=== PATIENT | male | born 1960 | race Caucasian/White ===

== ENCOUNTER 2017-09-06 20:38 | Emergency (ER) | payer OTHER ==
--- OUTSIDE RECORDS SUMMARY | 2017-09-06 20:40 | XMS REPORT | Summary of Care ---
:1960 Author Name KYMBERLY PIERRE M.D. Address Unavailable Unavailable , Care Team Providers Name Role Phone JOSH ORTIZ M.D. Unavailable Unavailable KYMBERLY PIERRE M.D. Unavailable Unavailable Unavailable Unavailable Unavailable Functional Status Name Dates Details Functional status health issues are not documented Status: Name Dates Details Cognitive status health issues are not documented Status: Problems Name Dates Details Osteoarthritis of left knee (715.96, M17.12) Status: Active Left knee pain (719.46, M25.562) Status: Active Seborrheic keratoses (702.19, L82.1) Status: Active Medications Name Dates Details OrthoVisc 30 MG/2ML Intra-articular Solution Prefilled Syringe inj 2 ml to l knee qweek x 3 weeks Quantity: 3 Refills: 0 JOSH ORTIZ M.D. Start : 30-Mar-2017 Active 2 ML Syringe Mobic TABS Refills: 0 Active Aspirin TABS Refills: 0 Active Allergies and Adverse Reactions Name Dates Details Penicillins (Allergy) Status: Active Procedures Procedure Dates Details Procedures not documented Immunization Name Dates Details Immunizations not documented Social History Name Dates Details - Status: Name Dates Details Never smoker Vital Signs Date Test Result Details No Known Vitals to report Results Date Description Value Details [id number] Tobacco Use Screening Completed DONE Plan of Care Name Dates Details Planned Observations Planned Goals not documented Interventions Provided Plan1. Seborrheic Keratoses, bilateral upper extremities- benign appearing, continue to monitor- discussed nature and etiology as well as possibility of acquiring more lesions over timeRTC PRN. Instructions Name Dates Details Instructions not documented Encounters Appointment; JOSH ORTIZ M.D. On: 30-Mar-2017 14:15 Encounter Diagnosis: Problem not documented Appointment; JOSH ORTIZ M.D. On: 15-Apr-2017 10:15 Encounter Diagnosis: Problem not documented Appointment; JOSH ORTIZ M.D. On: 22-Apr-2017 10:15 Encounter Diagnosis: Problem not documented Appointment; JOSH ORTIZ M.D. On: 29-Apr-2017 10:15 Encounter Diagnosis: Problem not documented Appointment; KYMBERLY PIERRE M.D. On: 13-Aug-2017 13:45 Encounter Diagnosis: Problem not documented
[2017-09-06 22:23] LABS: Urine Blood NEGATIVE (NEG); Urine Glucose NEGATIVE (NEG); Urine Protein NEGATIVE (NEG); Urine Specific Gravity 1.025 (1.005-1.030); Urine pH 6.5 (5.0-7.0)
[2017-09-06 22:25] LABS: Urine Bacteria NONE SEEN /HPF (NONE SEEN); Urine Culture Reflex Order NOT NEEDED; Urine RBC <5 /HPF (NONE SEEN)
[2017-09-06 22:30] LABS: Absolute Lymphocytes (CBC) 2.1 K/uL (0.7-4.9); Absolute Monocytes 0.9 K/uL (0.1-1.3); Absolute Neutrophil 5.1 K/uL (1.8-8.0); Basophils % 0.3 % (0-1.3); Eosinophils % 0.8 % (0-4.4); Lymphocytes % 25.5 % (15.3-44.8); MCH 28.9 pg (27.0-35.0); MCV 86.3 fL (80-100); MPV 9.8 fL (7.6-11.3); Monocytes % 10.6 % (3.3-12.3); RBC Red Blood Cell Count 5.56 M/uL (4.33-5.43)
[2017-09-06 22:40] LABS: ALT/SGPT 42 U/L (12-78); AST/SGOT 21 U/L (15-37); Albumin 3.9 g/dL (3.4-5.0); Alkaline Phosphatase 105 U/L (45-117); Amylase Level 47 U/L (25-115); BUN Blood Urea Nitrogen 20 mg/dL (7-18); Bicarbonate 30 mmol/L (21-32); Bilirubin Direct < 0.1 mg/dL (0-0.2); Bilirubin Total 0.4 mg/dL (0.2-1.0); Glucose Level 98 mg/dL (74-106); Lipase 135 U/L (73-393); Potassium 4.1 mmol/L (3.5-5.1); Protein, Total 7.2 g/dL (6.4-8.2); Sodium Level 141 mmol/L (136-145)
[2017-09-06] MEDS ORDERED: PANTOPRAZOLE 40 MG INJ ONE (23:07)
[2017-09-06] MEDS ORDERED: ONDANSETRON 4 MG/2 ML VIAL ONE (23:07)
--- NOTE | 2017-09-06 23:16 | ER ---
Nurse's Notes [facility] Name: Rei Euceda Jr Age: 57 yrs Sex: Male : 1960 Arrival Date: 09/06/2017 Time: 20:42 Bed 24 Private MD: Eligio Baca T Diagnosis: Nausea Presentation: 09/06 20:53 Presenting complaint: Patient states: he has been feeling nauseous x 1 week has had bb ulcers in the past and is concerned because he is going out of town next week. Transition of care: patient was not received from another setting of care. Onset of symptoms was August 30, 2017. Risk Assessment: Do you want to hurt yourself or someone else? Patient reports no desire to harm self or others. Initial Sepsis Screen: Does the patient meet any 2 criteria? No. Patient's initial sepsis screen is negative. Does the patient have a suspected source of infection? No. Patient's initial sepsis screen is negative. Care prior to arrival: None. 20:53 Method Of Arrival: Ambulatory 20:53 Acuity: DAVID 3 bb Historical: - Allergies: 20:55 PENICILLINS; bb - Home Meds: 20:55 aspirin 81 mg Oral TbEC 1 tab once daily [Active]; Flonase 50 mcg/actuation Nasal spsn bb 1 spray 2 times per day [Active]; aspirin 81 mg Oral chew 1 tab once daily [Active]; celecoxib 200 mg Oral cap 1 cap once daily [Active]; omeprazole 40 mg Oral cpDR 1 cap once daily [Active]; - PMHx: 20:55 allergies; Arthritis; bb 21:00 colitis; Ulcers; bb - PSHx: 20:55 shoulder surg; Knee surgery; bb 21:00 colonoscoppy; bb - Immunization history:: Adult Immunizations unknown. - Social history:: Smoking status: Patient/guardian denies using tobacco. - Ebola Screening: : No symptoms or risks identified at this time. Screenin:09 Abuse screen: Denies threats or abuse. Nutritional screening: No deficits noted. jd3 Tuberculosis screening: No symptoms or risk factors identified. Fall Risk Ambulatory Aid- None/Bed Rest/Nurse Assist (0 pts). Gait- Normal/Bed Rest/Wheelchair (0 pts) Mental Status- Oriented to own ability (0 pts). Total Estevez Fall Scale indicates No Risk (0-24 pts). Assessment: 21:06 General: Appears in no apparent distress. uncomfortable, Behavior is calm, cooperative, jd3 appropriate for age. Pain: Complains of pain in right upper quadrant and left upper quadrant Pain does not radiate. Quality of pain is described as aching, crampy, Pain began 2-3 days ago. Is continuous, Aggravated by eating, drinking, Also complains of nausea. Neuro: Level of Consciousness is awake, alert, obeys commands, Oriented to person, place, time, situation. Cardiovascular: Heart tones S1 S2 present Capillary refill < 3 seconds Patient's skin is warm and dry. Respiratory: Airway is patent Respiratory effort is even, unlabored, Respiratory pattern is regular, symmetrical, Breath sounds are clear bilaterally. GI: Abdomen is round Bowel sounds present X 4 quads. hyperactive in right upper quadrant, left upper quadrant, right lower quadrant and left lower quadrant Abd is soft and non tender X 4 quads. Reports constipation, nausea, Patient currently denies diarrhea, vomiting. : No signs and/or symptoms were reported regarding the genitourinary system. EENT: No signs and/or symptoms were reported regarding the EENT system. Derm: Skin is intact, Skin is dry, Skin is normal, Skin temperature is warm. Musculoskeletal: Circulation, motion, and sensation intact. Range of motion: intact in all extremities. 22:20 Reassessment: Patient appears in no apparent distress at this time. Patient and/or jd3 family updated on plan of care and expected duration. Pain level reassessed. Patient is alert, oriented x 3, equal unlabored respirations, skin warm/dry/pink. 23:20 Reassessment: Patient appears in no apparent distress at this time. Patient and/or jd3 family updated on plan of care and expected duration. Pain level reassessed. Patient is alert, oriented x 3, equal unlabored respirations, skin warm/dry/pink. pt reported understanding of discharge instructions, even and steady gait upon discharge. Patient denies pain at this time. Vital Signs: 20:55 BP 140 / 88; Pulse 78; Resp 18 S; Temp 98(O); Pulse Ox 97% on R/A; Weight 94.35 kg (R); bb Height 5 ft. 8 in. (172.72 cm) (R); Pain 0/10; 22:18 BP 121 / 84; Pulse 81; Resp 16 S; Pulse Ox 96% on R/A; Pain 0/10; bb 23:21 BP 133 / 97; Pulse 80; Resp 17 S; Pulse Ox 97% on R/A; Pain 0/10; jd3 20:55 Body Mass Index 31.63 (94.35 kg, 172.72 cm) bb ED Course: 20:42 Patient arrived in ED. ds1 20:42 Eligio Baca MD is Private Physician. ds1 20:54 Triage completed. bb 20:55 Arm band placed on right wrist. Patient placed in an exam room, on a stretcher. bb 21:06 Valeriy Stone, RN is Primary Nurse. jd3 21:06 Arsalan Bennett MD is Attending Physician. tw4 21:09 Patient has correct armband on for positive identification. Bed in low position. Call jd3 light in reach. Side rails up X 1. Adult w/ patient. 22:08 Inserted saline lock: 20 gauge in right antecubital area, using aseptic technique. jd3 Blood collected. 23:15 IV discontinued, intact, bleeding controlled, No redness/swelling at site. Pressure jd3 dressing applied. 23:22 No provider procedures requiring assistance completed. jd3 Administered Medications: 23:12 Drug: ProTONIX 40 mg Route: IVP; Site: right antecubital; jd3 23:23 Follow up: Response: No adverse reaction jd3 23:12 Drug: Zofran 4 mg Route: IVP; Site: right antecubital; jd3 23:23 Follow up: Response: No adverse reaction jd3 Outcome: 23:15 Discharge ordered by . tw4 23:22 Discharged to home ambulatory, with family. jd3 23:22 Condition: stable 23:22 Discharge instructions given to patient, family, Instructed on discharge instructions, follow up and referral plans. medication usage, Demonstrated understanding of instructions, follow-up care, medications, Prescriptions given X 1. 23:23 Patient left the ED. jd3 Signatures: Yolande Flores ds1 Kim Sen RN RN bb Valeriy Stone, Arsalan Bazzi RN, MD MD tw4 Corrections: (The following items were deleted from the chart) 20:58 20:53 Presenting complaint: Patient states: he has been feeling nauseous x 1 week bb bb 22:19 22:19 Reassessment: Patient appears in no apparent distress at this time. Patient bb and/or family updated on plan of care and expected duration. Pain level reassessed. Patient is alert, oriented x 3, equal unlabored respirations, skin warm/dry/pink. faheem 22:08 Inserted saline lock: 20 gauge in right antecubital area, using aseptic bb technique. Blood collected. faheem
--- NOTE | 2017-09-06 23:16 | EDPHYS ---
Physician Documentation [facility] Name: Rei Euceda Jr Age: 57 yrs Sex: Male : 1960 Arrival Date: 09/06/2017 Time: 20:42 Bed 24 Private MD: Eligio Baca T ED Physician Arsalan Bennett HPI: 09/06 23:08 This 57 yrs old Male presents to ER via Ambulatory with complaints of Nausea, tw4 Abdominal Pain. 23:08 The patient presents to the emergency department with nausea, vomiting. Onset: The tw4 symptoms/episode began/occurred today. Possible causes: unknown. The symptoms are aggravated by food . Associated signs and symptoms: The patient has no apparent associated signs or symptoms. Severity of symptoms: At their worst the symptoms were moderate in the emergency department the symptoms have resolved. The patient has not experienced similar symptoms in the past. Historical: - Allergies: 20:55 PENICILLINS; bb - Home Meds: 20:55 aspirin 81 mg Oral TbEC 1 tab once daily [Active]; Flonase 50 mcg/actuation Nasal spsn bb 1 spray 2 times per day [Active]; aspirin 81 mg Oral chew 1 tab once daily [Active]; celecoxib 200 mg Oral cap 1 cap once daily [Active]; omeprazole 40 mg Oral cpDR 1 cap once daily [Active]; - PMHx: 20:55 allergies; Arthritis; bb 21:00 colitis; Ulcers; bb - PSHx: 20:55 shoulder surg; Knee surgery; bb 21:00 colonoscoppy; bb - Immunization history:: Adult Immunizations unknown. - Social history:: Smoking status: Patient/guardian denies using tobacco. - Ebola Screening: : No symptoms or risks identified at this time. ROS: 23:08 Constitutional: Negative for fever, chills, and weight loss, Cardiovascular: Negative tw4 for chest pain, palpitations, and edema, Respiratory: Negative for shortness of breath, cough, wheezing, and pleuritic chest pain. 23:08 Back: Negative for injury and pain, MS/Extremity: Negative for injury and deformity, Skin: Negative for injury, rash, and discoloration, Neuro: Negative for headache, weakness, numbness, tingling, and seizure. 23:08 Abdomen/GI: Positive for nausea, Negative for abdominal pain, nausea and vomiting, nausea, vomiting, and diarrhea, vomiting, diarrhea, abdominal cramps, abdominal distension, anorexia, dysphagia, black/tarry stool, rectal pain, rectal bleeding, bowel incontinence. Exam: 23:08 Constitutional: This is a well developed, well nourished patient who is awake, alert, tw4 and in no acute distress. Head/Face: Normocephalic, atraumatic. Chest/axilla: Normal chest wall appearance and motion. Nontender with no deformity. No lesions are appreciated. Cardiovascular: Regular rate and rhythm with a normal S1 and S2. No gallops, murmurs, or rubs. Normal PMI, no JVD. No pulse deficits. Respiratory: Lungs have equal breath sounds bilaterally, clear to auscultation and percussion. No rales, rhonchi or wheezes noted. No increased work of breathing, no retractions or nasal flaring. Abdomen/GI: Soft, non-tender, with normal bowel sounds. No distension or tympany. No guarding or rebound. No evidence of tenderness throughout. Back: No spinal tenderness. No costovertebral tenderness. Full range of motion. MS/ Extremity: Pulses equal, no cyanosis. Neurovascular intact. Full, normal range of motion. Neuro: Awake and alert, GCS 15, oriented to person, place, time, and situation. Cranial nerves II-XII grossly intact. Motor strength 5/5 in all extremities. Sensory grossly intact. Cerebellar exam normal. Normal gait. Vital Signs: 20:55 BP 140 / 88; Pulse 78; Resp 18 S; Temp 98(O); Pulse Ox 97% on R/A; Weight 94.35 kg (R); bb Height 5 ft. 8 in. (172.72 cm) (R); Pain 0/10; 22:18 BP 121 / 84; Pulse 81; Resp 16 S; Pulse Ox 96% on R/A; Pain 0/10; bb 23:21 BP 133 / 97; Pulse 80; Resp 17 S; Pulse Ox 97% on R/A; Pain 0/10; jd3 20:55 Body Mass Index 31.63 (94.35 kg, 172.72 cm) bb MDM: 21:06 Patient medically screened. tw4 23:08 Differential diagnosis: Nonspecific abd pain, cholecystitis, pancreatitis, tw4 appendicitis, diverticulitis. Data reviewed: vital signs, nurses notes. Counseling: I had a detailed discussion with the patient and/or guardian regarding: the historical points, exam findings, and any diagnostic results supporting the discharge/admit diagnosis, lab results. Medication response: Zofran relieved the patient's nausea. Response to treatment: the patient's symptoms have resolved after treatment, and as a result, I will discharge patient. Special discussion: I discussed with the patient/guardian in detail that at this point there is no indication for admission to the hospital. It is understood, however, that if the symptoms persist or worsen the patient needs to return immediately for re-evaluation. ED course: pt has no abdominal pain upon initial exam. Instructed to followup and return if symptoms worsen. 09/06 21:41 Order name: Amylase, Serum; Complete Time: 22:42 [facility] 09/06 22:42 Interpretation: Within normal limits: ARIE 47. [facility] 09/06 21:41 Order name: Basic Metabolic Panel; Complete Time: 22:42 [facility] 09/06 22:42 Interpretation: Normal except: BUN 20; GFR 69; CA 8.4. [facility] 09/06 21:41 Order name: CBC with Diff; Complete Time: 22:42 [facility] 09/06 22:42 Interpretation: Normal except: RBC 5.56. [facility] 09/06 21:41 Order name: Creatinine for Radiology; Complete Time: 22:42 [facility] 09/06 22:42 Interpretation: Within normal limits: CRE 1.10; GFR > 60. [facility] 09/06 21:41 Order name: Hepatic Function; Complete Time: 22:42 [facility] 09/06 22:43 Interpretation: Within normal limits. [facility] 09/06 21:41 Order name: Lipase; Complete Time: 22:42 [facility] 09/06 21:41 Order name: Urine Microscopic Only; Complete Time: 22:42 [facility] 09/06 22:43 Interpretation: Within normal limits. [facility] 09/06 21:41 Order name: IV Saline Lock; Complete Time: 22:17 [facility] 09/06 21:41 Order name: Labs collected and sent; Complete Time: 22:17 [facility] 09/06 21:41 Order name: Urine Dipstick-Ancillary (obtain specimen); Complete Time: 22:17 [facility] 09/06 22:17 Order name: Urine Dipstick--Ancillary (enter results); Complete Time: 22:42 [facility] 09/06 22:43 Interpretation: Within normal limits. tw4 Administered Medications: 23:12 Drug: ProTONIX 40 mg Route: IVP; Site: right antecubital; jd3 23:23 Follow up: Response: No adverse reaction jd3 23:12 Drug: Zofran 4 mg Route: IVP; Site: right antecubital; jd3 23:23 Follow up: Response: No adverse reaction jd3 Disposition: 09/06/17 23:15 Discharged to Home. Impression: Nausea. - Condition is Stable. - Discharge Instructions: Nausea, Adult. - Prescriptions for Zofran 4 mg Oral Tablet - take 1 tablet by ORAL route every 12 hours As needed; 20 tablet. - Medication Reconciliation Form, Thank You Letter, Antibiotic Education, Prescription Opioid Use form. - Follow up: Private Physician; When: As needed; Reason: Recheck today's complaints, Re-evaluation by your physician. Signatures: Dispatcher [employer] Kim Wilkinson RN RN bb Davies, Jonathon, RN RN jd3 Wadley, Terrence, MD MD tw4 Corrections: (The following items were deleted from the chart) 23:23 23:15 09/06/2017 23:15 Discharged to Home. Impression: Nausea. Condition is Stable. jd3 Forms are Medication Reconciliation Form, Thank You Letter, Antibiotic Education, Prescription Opioid Use. Follow up: Private Physician; When: As needed; Reason: Recheck today's complaints, Re-evaluation by your physician. tw4
[2017-09-06 23:29] VITALS: TEMP 98
[2017-09-06 23:32] VITALS: BP 133/97; O2SAT 97
== END 2017-09-06 23:23 | disposition home or self-care (01) ==
LOC: ER 20:38
DX: R11.0 Nausea (principal); Z88.0 Allergy status to penicillin; Z79.82 Long term (current) use of aspirin
CPT/HCPCS: 36415; 80048; 80076; 81003; 81015; 82150; 83690; 85025; 96374; 96375; 99284; C9113; J2405

== ENCOUNTER 2017-11-04 20:11 | Emergency (ER) | payer OTHER ==
[2017-11-04 22:56] LABS: Absolute Lymphocytes (CBC) 1.5 K/uL (0.7-4.9); Absolute Monocytes 0.6 K/uL (0.1-1.3); Absolute Neutrophil 5.7 K/uL (1.8-8.0); Basophils % 0.3 % (0-1.3); Eosinophils % 0.8 % (0-4.4); Lymphocytes % 19.1 % (15.3-44.8); MCH 29.9 pg (27.0-35.0); MCV 85.3 fL (80-100); MPV 9.4 fL (7.6-11.3); Monocytes % 7.5 % (3.3-12.3); RBC Red Blood Cell Count 5.16 M/uL (4.33-5.43)
[2017-11-04] MEDS ORDERED: NA CHLORIDE 0.9% 1,000 ML ONE (23:09)
[2017-11-04 23:14] LABS: Albumin 3.4 g/dL (3.4-5.0); Bilirubin Direct 0.1 mg/dL (0-0.2); Bilirubin Total 0.4 mg/dL (0.2-1.0); Potassium 3.9 mmol/L (3.5-5.1)
[2017-11-05 00:02] LABS: Urine Blood NEGATIVE (NEG); Urine Glucose NEGATIVE (NEG); Urine Protein NEGATIVE (NEG); Urine Specific Gravity 1.015 (1.005-1.030); Urine pH 7.5 (5.0-7.0)
[2017-11-05 00:21] LABS: Urine Bacteria <20 /HPF (NONE SEEN); Urine Culture Reflex Order NOT NEEDED; Urine RBC NONE SEEN /HPF (NONE SEEN)
[2017-11-05 00:22] LABS: Urine Amorphous Sediment 1+ /HPF (NONE SEEN)
--- NOTE | 2017-11-05 00:29 | ER ---
Nurse's Notes [facility] Name: Rei Euceda Jr Age: 57 yrs Sex: Male : 1960 Arrival Date: 11/04/2017 Time: 20:15 Bed 15 Private MD: Eligio Baca T Diagnosis: Myalgias Presentation: 11/04 20:35 Presenting complaint: Patient states: Last he started feeling sore all over, aj1 and he has been dealing with it on and off since then. Denies fever. Reports constipation, denies abdominal pain and vomiting. Reports some nausea. Denies CP, Denies SOB. Transition of care: patient was not received from another setting of care. Onset of symptoms was October 28, 2017. Risk Assessment: Do you want to hurt yourself or someone else? Patient reports no desire to harm self or others. Initial Sepsis Screen: Does the patient meet any 2 criteria? No. Patient's initial sepsis screen is negative. Does the patient have a suspected source of infection? No. Patient's initial sepsis screen is negative. Care prior to arrival: None. 20:35 Method Of Arrival: Ambulatory [facility] 20:35 Acuity: DAVID 4 aj1 Triage Assessment: 20:38 General: Appears in no apparent distress. comfortable, Behavior is calm, cooperative, aj1 appropriate for age. Pain: Complains of pain in generalized soreness Pain currently is 7 out of 10 on a pain scale. Neuro: Level of Consciousness is awake, alert, obeys commands, Oriented to person, place, time, situation, Speech is normal, Facial symmetry appears normal, Denies weakness blurred vision dizziness. Cardiovascular: Denies chest pain, palpitations, shortness of breath. Respiratory: Airway is patent Respiratory effort is even, unlabored, Respiratory pattern is regular, symmetrical, Denies cough, shortness of breath. GI: Reports constipation, Patient currently denies diarrhea, vomiting. Historical: - Allergies: 20:38 PENICILLINS; aj1 - Home Meds: 20:38 losartan oral oral [Active]; aj1 - PMHx: 20:38 allergies; Arthritis; Colitis; Ulcers; Hypertension; aj1 - Immunization history:: Flu vaccine is not up to date. - Social history:: Smoking status: Patient/guardian denies using tobacco. - Ebola Screening: : Patient denies travel to an Ebola-affected area in the 21 days before illness onset. - Family history:: not pertinent, pertinent for. - Hospitalizations: : No recent hospitalization is reported. Screenin:35 Abuse screen: Denies threats or abuse. Nutritional screening: No deficits noted. jd3 Tuberculosis screening: No symptoms or risk factors identified. Fall Risk Ambulatory Aid- None/Bed Rest/Nurse Assist (0 pts). Gait- Normal/Bed Rest/Wheelchair (0 pts) Mental Status- Oriented to own ability (0 pts). Total Estevez Fall Scale indicates No Risk (0-24 pts). Assessment: 21:33 General: Appears in no apparent distress. uncomfortable, Behavior is calm, cooperative, jd3 appropriate for age, Reports generalized soreness. Pain: Complains of pain in right foot, left foot, right arm and neck Quality of pain is described as aching. Neuro: Level of Consciousness is awake, alert, obeys commands, Oriented to person, place, time, situation. Cardiovascular: Heart tones S1 S2 present Capillary refill < 3 seconds Patient's skin is warm and dry. Respiratory: Airway is patent Respiratory effort is even, unlabored, Respiratory pattern is regular, symmetrical, Breath sounds are clear bilaterally. GI: Abdomen is round Bowel sounds present X 4 quads. Abd is soft and non tender X 4 quads. Reports constipation, nausea. : No signs and/or symptoms were reported regarding the genitourinary system. EENT: No signs and/or symptoms were reported regarding the EENT system. Derm: Skin is intact, Skin is dry, Skin is normal, Skin temperature is warm. Musculoskeletal: Circulation, motion, and sensation intact. Range of motion: intact in all extremities. 22:30 Reassessment: Patient appears in no apparent distress at this time. Patient and/or jd3 family updated on plan of care and expected duration. Pain level reassessed. Patient is alert, oriented x 3, equal unlabored respirations, skin warm/dry/pink. 23:30 Reassessment: Patient appears in no apparent distress at this time. Patient and/or jd3 family updated on plan of care and expected duration. Pain level reassessed. Patient is alert, oriented x 3, equal unlabored respirations, skin warm/dry/pink. 11/05 00:18 Reassessment: Patient appears in no apparent distress at this time. Patient and/or jd3 family updated on plan of care and expected duration. Pain level reassessed. Patient is alert, oriented x 3, equal unlabored respirations, skin warm/dry/pink. 00:37 Reassessment: Patient appears in no apparent distress at this time. Patient and/or jd3 family updated on plan of care and expected duration. Pain level reassessed. Patient is alert, oriented x 3, equal unlabored respirations, skin warm/dry/pink. Patient states feeling better. Vital Signs: 11/04 20:38 BP 137 / 94; Pulse 88; Resp 18; Temp 98.2; Pulse Ox 96% on R/A; Weight 95.25 kg (R); aj1 Height 5 ft. 8 in. (172.72 cm) (R); Pain 7/10; 11/05 00:17 BP 127 / 83; Pulse 83; Resp 16 S; Pulse Ox 97% on R/A; jd3 00:37 BP 126 / 81; Pulse 84; Resp 16 S; Pulse Ox 98% on R/A; jd3 11/04 20:38 Body Mass Index 31.93 (95.25 kg, 172.72 cm) aj1 ED Course: 11/04 20:15 Patient arrived in ED. es 20:15 Eligio Baca MD is Private Physician. es 20:37 Triage completed. aj1 20:38 Arm band placed on Patient placed in waiting room, Patient notified of wait time. aj1 21:29 Valeriy Stone, BELINDA is Primary Nurse. jd3 21:36 Patient has correct armband on for positive identification. Bed in low position. Call j light in reach. Side rails up X 1. 21:46 Daryl Hall MD is Attending Physician. wa 22:50 Inserted saline lock: 20 gauge in right antecubital area, using aseptic technique. mt Blood collected. 11/05 00:30 No provider procedures requiring assistance completed. IV discontinued, intact, jd3 bleeding controlled, No redness/swelling at site. Pressure dressing applied. Administered Medications: 11/04 23:15 Drug: NS 0.9% 1000 ml Route: IV; Rate: 1000 ml; Site: right antecubital; jd3 11/05 00:51 Follow up: Response: No adverse reaction; IV Status: Completed infusion; IV Intake: jd3 1000ml 00:45 Drug: Decadron - Dexamethasone 10 mg Route: IVP; Site: right antecubital; jd3 00:51 Follow up: Response: Medication administered at discharge. jd3 Intake: 00:51 IV: 1000ml; Total: 1000ml. jd3 Outcome: 00:29 Discharge ordered by . tabitha 00:30 Discharged to home ambulatory. jd3 00:30 Condition: stable 00:30 Discharge instructions given to patient, Instructed on discharge instructions, follow up and referral plans. Demonstrated understanding of instructions, follow-up care. 00:55 Patient left the ED. jd3 Signatures: Sparkle Uriarte, RN RN aj1 Sharda Akins Moriah mt Appiah, William, MD MD wa Davies, Jonathon, RN RN jd3
--- NOTE | 2017-11-05 00:29 | EDPHYS ---
Physician Documentation [facility] Name: Rei Euceda Jr Age: 57 yrs Sex: Male : 1960 Arrival Date: 11/04/2017 Time: 20:15 Bed 15 Private MD: Elgiio Baca T ED Physician Daryl Hall HPI: 11/05 00:25 This 57 yrs old Male presents to ER via Ambulatory with complaints of BODY IS wa SORE. 00:25 c/o "my whole body is sore." Denies BOWER, dizziness, SOB, CP, abd pain or weakness. wa denies cough. Onset: The symptoms/episode began/occurred 3 day(s) ago. Severity of symptoms: At their worst the symptoms were moderate in the emergency department the symptoms are unchanged. The patient has not experienced similar symptoms in the past. The patient has not recently seen a physician. Historical: - Allergies: 11/04 20:38 PENICILLINS; aj1 - Home Meds: 20:38 losartan oral oral [Active]; aj1 - PMHx: 20:38 allergies; Arthritis; Colitis; Ulcers; Hypertension; aj1 - Immunization history:: Flu vaccine is not up to date. - Social history:: Smoking status: Patient/guardian denies using tobacco. - Ebola Screening: : Patient denies travel to an Ebola-affected area in the 21 days before illness onset. - Family history:: not pertinent, pertinent for. - Hospitalizations: : No recent hospitalization is reported. ROS: 11/05 00:27 Constitutional: Negative for fever, chills, and weight loss, Eyes: Negative for injury, wa pain, redness, and discharge, ENT: Negative for injury, pain, and discharge, Neck: Negative for injury, pain, and swelling, Cardiovascular: Negative for chest pain, palpitations, and edema, Respiratory: Negative for shortness of breath, cough, wheezing, and pleuritic chest pain, Abdomen/GI: Negative for abdominal pain, nausea, vomiting, diarrhea, and constipation. Constitutional: Negative for fever, chills, and weight loss, Back: Negative for injury and pain, : Negative for injury, bleeding, discharge, and swelling, MS/Extremity: Negative for injury and deformity, Skin: Negative for injury, rash, and discoloration, Neuro: Negative for headache, weakness, numbness, tingling, and seizure, Psych: Negative for depression, anxiety, suicide ideation, homicidal ideation, and hallucinations. All other systems are negative. Exam: 00:27 Constitutional: This is a well developed, well nourished patient who is awake, alert, wa and in no acute distress. Head/Face: Normocephalic, atraumatic. Eyes: Pupils equal round and reactive to light, extra-ocular motions intact. Lids and lashes normal. Conjunctiva and sclera are non-icteric and not injected. Cornea within normal limits. Periorbital areas with no swelling, redness, or edema. ENT: Nares patent. No nasal discharge, no septal abnormalities noted. Tympanic membranes are normal and external auditory canals are clear. Oropharynx with no redness, swelling, or masses, exudates, or evidence of obstruction, uvula midline. Mucous membranes moist. Neck: Trachea midline, no thyromegaly or masses palpated, and no cervical lymphadenopathy. Supple, full range of motion without nuchal rigidity, or vertebral point tenderness. No Meningismus. Chest/axilla: Normal chest wall appearance and motion. Nontender with no deformity. No lesions are appreciated. Cardiovascular: Regular rate and rhythm with a normal S1 and S2. No gallops, murmurs, or rubs. Normal PMI, no JVD. No pulse deficits. Respiratory: Lungs have equal breath sounds bilaterally, clear to auscultation and percussion. No rales, rhonchi or wheezes noted. No increased work of breathing, no retractions or nasal flaring. Abdomen/GI: Soft, non-tender, with normal bowel sounds. No distension or tympany. No guarding or rebound. No evidence of tenderness throughout. Back: No spinal tenderness. No costovertebral tenderness. Full range of motion. Skin: Warm, dry with normal turgor. Normal color with no rashes, no lesions, and no evidence of cellulitis. MS/ Extremity: Pulses equal, no cyanosis. Neurovascular intact. Full, normal range of motion. Neuro: Awake and alert, GCS 15, oriented to person, place, time, and situation. Cranial nerves II-XII grossly intact. Motor strength 5/5 in all extremities. Sensory grossly intact. Cerebellar exam normal. Normal gait. Psych: Awake, alert, with orientation to person, place and time. Behavior, mood, and affect are within normal limits. Vital Signs: 11/04 20:38 BP 137 / 94; Pulse 88; Resp 18; Temp 98.2; Pulse Ox 96% on R/A; Weight 95.25 kg (R); aj1 Height 5 ft. 8 in. (172.72 cm) (R); Pain 7/10; 11/05 00:17 BP 127 / 83; Pulse 83; Resp 16 S; Pulse Ox 97% on R/A; jd3 00:37 BP 126 / 81; Pulse 84; Resp 16 S; Pulse Ox 98% on R/A; jd3 11/04 20:38 Body Mass Index 31.93 (95.25 kg, 172.72 cm) aj1 MDM: 11/04 21:46 Patient medically screened. wi 11/05 00:27 Differential Diagnosis nml exam and vitals. c/o body soreness. only takes losartan for wi BP. Data reviewed: vital signs, nurses notes. Test interpretation: by ED physician or midlevel provider: labs wnl.. Response to treatment: the patient's symptoms have markedly improved after treatment. 11/04 22:24 Order name: Basic Metabolic Panel; Complete Time: 00:24 wi 11/04 22:24 Order name: CBC with Diff; Complete Time: 00:24 wi 11/04 22:24 Order name: Hepatic Function; Complete Time: 00:24 wi 11/04 22:24 Order name: Lipase; Complete Time: 00:24 wi 11/04 22:24 Order name: Urine Microscopic Only; Complete Time: 00:24 wi 11/04 23:29 Order name: Urine Dipstick--Ancillary (enter results); Complete Time: 00:24 [facility] 11/04 22:24 Order name: IV Saline Lock; Complete Time: 23:03 wi 11/04 22:24 Order name: Labs collected and sent; Complete Time: 23:03 wi 11/04 22:24 Order name: Urine Dipstick-Ancillary (obtain specimen); Complete Time: 00:02 wi Administered Medications: 11/04 23:15 Drug: NS 0.9% 1000 ml Route: IV; Rate: 1000 ml; Site: right antecubital; jd3 11/05 00:51 Follow up: Response: No adverse reaction; IV Status: Completed infusion; IV Intake: jd3 1000ml 00:45 Drug: Decadron - Dexamethasone 10 mg Route: IVP; Site: right antecubital; jd3 00:51 Follow up: Response: Medication administered at discharge. jd3 Disposition: 11/05/17 00:29 Discharged to Home. Impression: Myalgias. - Condition is Stable. - Medication Reconciliation Form, Thank You Letter, Antibiotic Education, Prescription Opioid Use form. - Follow up: Private Physician; When: 1 - 2 days; Reason: Re-evaluation by your physician. - Problem is new. - Symptoms have improved. - Notes: your tests are normal. follow up with your doctor but return here immediately for worsening concerns Signatures: Dispatcher [employer] EDSparkle Rodriguez RN RN aj1 Daryl Hall MD MD wa Davies, Jonathon, RN RN jd3 Corrections: (The following items were deleted from the chart) 00:55 00:29 11/05/2017 00:29 Discharged to Home. Impression: Myalgias. Condition is Stable. jd3 Forms are Medication Reconciliation Form, Thank You Letter, Antibiotic Education, Prescription Opioid Use. Follow up: Private Physician; When: 1 - 2 days; Reason: Re-evaluation by your physician. Problem is new. Symptoms have improved. tabitha
[2017-11-05] MEDS ORDERED: DEXAMETHASONE 4 MG/ML VIAL ONE (00:49)
[2017-11-05 01:11] VITALS: TEMP 98.2
[2017-11-05 01:14] VITALS: BP 126/81; O2SAT 98
== END 2017-11-05 00:55 | disposition home or self-care (01) ==
LOC: ER 20:11
DX: M79.1 Myalgia (principal); I10 Essential (primary) hypertension; Z88.0 Allergy status to penicillin
CPT/HCPCS: 36415; 80048; 80076; 81003; 81015; 83690; 85025; 96361; 96374; 99283; J7030

== ENCOUNTER 2018-04-02 15:57 | Emergency (ER) | payer OTHER ==
[2018-04-02 16:44] LABS: Absolute Monocytes 0.5 K/uL (0.1-1.3); Absolute Neutrophil 4.2 K/uL (1.8-8.0); Basophils % 0.3 % (0-1.3); Eosinophils % 1.3 % (0-4.4); Hematocrit 45.1 % (39.6-49.0); MPV 9.2 fL (7.6-11.3); Monocytes % 8.9 % (3.3-12.3); RBC Red Blood Cell Count 5.26 M/uL (4.33-5.43)
[2018-04-02 16:59] LABS: Protime INR 1.01
--- NOTE | 2018-04-02 18:05 | RAD REPORT ---
EXAM DESCRIPTION: CT - Chest For Pe Angio - 04/02/2018 6:00 pm CLINICAL HISTORY: Chest pain, shortness of breath, history of total knee surgery February 2018 COMPARISON: None. TECHNIQUE: Dynamically enhanced 3 mm thick images of the chest were obtained during administration o f approximately 150mL Isovue 370 IV contrast. Coronal and oblique MIP reconstruction images were gene rated and reviewed. Exam utilizes a protocol to evaluate the pulmonary arterial tree. All CT scans are performed using dose optimization technique as appropriate and may include automated exposure control or mA/KV adjustment according to patient size. FINDINGS: No pulmonary emboli are identified. The aorta as imaged shows no acute or suspicious finding. No pericardial thickening or effusion. No infiltrate or mass in the lung parenchyma. No pleural effusion or pleural thickening. No mediastinal or hilar suspicious masses. No chest wall masses or abnormal axillary lymphadenopathy. IMPRESSION: No pulmonary emboli identified. No other significant or suspicious findings.
[2018-04-02 18:07] LABS: ALT/SGPT 39 U/L (12-78); AST/SGOT 22 U/L (15-37); Albumin 3.6 g/dL (3.4-5.0); Alkaline Phosphatase 128 U/L (45-117); BUN Blood Urea Nitrogen 18 mg/dL (7-18); Bicarbonate 27 mmol/L (21-32); Bilirubin Direct 0.1 mg/dL (0-0.2); Bilirubin Total 0.5 mg/dL (0.2-1.0); Glucose Level 96 mg/dL (74-106); Magnesium 2.3 mg/dL (1.8-2.4); NT PRO-BNP 31 pg/mL (<125); Potassium 4.1 mmol/L (3.5-5.1); Protein, Total 7.1 g/dL (6.4-8.2); Sodium Level 140 mmol/L (136-145); Troponin (Emerg Dept Use Only) < 0.02 ng/mL (0.0-0.045)
--- NOTE | 2018-04-02 18:31 | ER ---
Nurse's Notes [facility] Name: Rei Euceda Jr Age: 58 yrs Sex: Male : 1960 Arrival Date: 04/02/2018 Time: 15:58 Bed 24 Private MD: Eligio Baca T Diagnosis: Palpitations Presentation: 04/02 16:06 Presenting complaint: Patient states: I had a left total knee in February and since la1 then I noticed my resting HR is higher, like in the 90s or 100 and it used to be in the 40s and 50s. Pt also reports intermittent palpitations and pain in the back that comes around to the left side. Transition of care: patient was not received from another setting of care. Onset of symptoms was April 02, 2018. Risk Assessment: Do you want to hurt yourself or someone else? Patient reports no desire to harm self or others. Initial Sepsis Screen: Does the patient meet any 2 criteria? No. Patient's initial sepsis screen is negative. Does the patient have a suspected source of infection? No. Patient's initial sepsis screen is negative. Care prior to arrival: None. 16:06 Method Of Arrival: Ambulatory la1 16:06 Acuity: DAVID 3 la1 Historical: - Allergies: 16:08 PENICILLINS; la1 - PMHx: 16:08 allergies; Arthritis; Colitis; Hypertension; Ulcers; la1 - Immunization history:: Adult Immunizations up to date. - Social history:: Smoking status: Patient/guardian denies using tobacco. - Ebola Screening: : No symptoms or risks identified at this time. Screenin:09 Abuse screen: Denies injuries from another. Nutritional screening: No deficits noted. la1 Tuberculosis screening: No symptoms or risk factors identified. Fall Risk None identified. Assessment: 16:08 General: Appears in no apparent distress. Behavior is calm, cooperative. Pain: Denies la1 pain. Neuro: Level of Consciousness is awake, alert, obeys commands, Oriented to person, place, time, situation. Cardiovascular: Heart tones S1 S2 present Patient's skin is warm and dry. Respiratory: Airway is patent Trachea midline Respiratory effort is even, unlabored, Respiratory pattern is regular, symmetrical, Breath sounds are clear bilaterally. GI: No signs and/or symptoms were reported involving the gastrointestinal system. : No signs and/or symptoms were reported regarding the genitourinary system. 17:51 Reassessment: Patient appears in no apparent distress at this time. No changes from la1 previously documented assessment. Patient and/or family updated on plan of care and expected duration. Pain level reassessed. Patient is alert, oriented x 3, equal unlabored respirations, skin warm/dry/pink. Vital Signs: 16:08 BP 133 / 82; Pulse 78; Resp 18; Pulse Ox 98% on R/A; Weight 94.35 kg; Height 5 ft. 8 la1 in. (172.72 cm); 17:52 BP 114 / 79; Pulse 67; Resp 18; Pulse Ox 98% on R/A; la1 16:08 Body Mass Index 31.63 (94.35 kg, 172.72 cm) la1 ED Course: 15:58 Patient arrived in ED. rg4 15:58 Eligio Baca MD is Private Physician. rg4 16:06 Young Moreno, RN is Primary Nurse. la1 16:07 Triage completed. la1 16:07 Stiven Stoner PA is PHCP. [facility] 16:07 Kamron Camilo MD is Attending Physician. [facility] 16:08 Arm band placed on right wrist. EKG completed in triage. Results shown to MD. la1 16:09 Call light in reach. Side rails up X 1. cardiac monitor on. Pulse ox on. NIBP on. la1 16:13 EKG done, by ED staff. lt1 17:35 Radiology exam delayed due to lab results not completed at this time. (BUN/Creatinine). kw1 17:43 Radiology exam delayed due to lab results not completed at this time. (BUN/Creatinine). kw1 18:00 CT completed. Patient tolerated procedure well. Patient moved back from CT. kw1 18:01 Chest For PE Angio CT In Process Unspecified. EDMS 18:49 No provider procedures requiring assistance completed. IV discontinued, intact, la1 bleeding controlled, No redness/swelling at site. Pressure dressing applied. Patient maintains SpO2 saturation greater than 95% on room air. Administered Medications: No medications were administered Outcome: 18:30 Discharge ordered by MD. juancho 18:50 Discharged to home ambulatory. la1 18:50 Condition: stable 18:50 Discharge instructions given to patient, Instructed on discharge instructions, follow up and referral plans. medication usage, Demonstrated understanding of instructions, follow-up care. 18:50 Patient left the ED. la1 Signatures: Dispatcher [employer] EDMS Stiven Stoner PA PA jmm Attema, Lee, RN RN Quiana Armstrong4 Jaye Garza1 Jaylene Sullivan 1
--- NOTE | 2018-04-02 18:31 | EDPHYS ---
Physician Documentation [facility] Name: Rei Euceda Jr Age: 58 yrs Sex: Male : 1960 Arrival Date: 04/02/2018 Time: 15:58 Bed 24 Private MD: Eligio Baca T ED Physician Kamron Camilo HPI: 04/02 16:34 This 58 yrs old Male presents to ER via Ambulatory with complaints of Chest jmm Pain, Back Pain, Palpitations. 16:34 Onset: The symptoms/episode began/occurred gradually, 6 week(s) ago. Duration: The jmm patient or guardian reports multiple episodes. Associated signs and symptoms: Pertinent positives:. This is a 58 year old male with a history of htn that presents to the ED with complaints of palpitations, and left scapular back pain worsening since a knee surgery in February of 2018. Patient denies chest pain or shortness of breath. Patient states he does not feel right. . Historical: - Allergies: 16:08 PENICILLINS; la1 - PMHx: 16:08 allergies; Arthritis; Colitis; Hypertension; Ulcers; la1 - Immunization history:: Adult Immunizations up to date. - Social history:: Smoking status: Patient/guardian denies using tobacco. - Ebola Screening: : No symptoms or risks identified at this time. ROS: 16:34 Constitutional: Negative for fever, chills, and weight loss, Respiratory: Negative for jmm shortness of breath, cough, wheezing, and pleuritic chest pain. 16:34 Abdomen/GI: Negative for abdominal pain, nausea, vomiting, diarrhea, and constipation, MS/Extremity: Negative for injury and deformity. 16:34 Cardiovascular: Positive for palpitations. 16:34 All other systems are negative. Exam: 16:34 Constitutional: This is a well developed, well nourished patient who is awake, alert, jmm and in no acute distress. Head/Face: atraumatic. Eyes: EOMI, no conjunctival erythema appreciated ENT: Moist Mucus Membranes Neck: Trachea midline, Supple Chest/axilla: Normal chest wall appearance and motion. Cardiovascular: Regular rate and rhythm. No edema appreciated Respiratory: Normal respirations, no respiratory distress appreciated 16:34 Cardiovascular: Rate: normal, Rhythm: regular, Pulses: no pulse deficits are appreciated. 16:34 Musculoskeletal/extremity: ROM: intact in all extremities, no edema appreciated. 16:34 Musculoskeletal/extremity: ROM: 16:34 Skin: Appearance: Color: normal in color. 16:34 Neuro: Orientation: is normal, Mentation: is normal, Memory: is normal. 16:34 Psych: Behavior/mood is pleasant, cooperative. Vital Signs: 16:08 BP 133 / 82; Pulse 78; Resp 18; Pulse Ox 98% on R/A; Weight 94.35 kg; Height 5 ft. 8 la1 in. (172.72 cm); 17:52 BP 114 / 79; Pulse 67; Resp 18; Pulse Ox 98% on R/A; la1 16:08 Body Mass Index 31.63 (94.35 kg, 172.72 cm) la1 MDM: 16:24 Patient medically screened. [facility] 16:43 Data reviewed: vital signs, nurses notes. [facility] 18:28 Data reviewed: lab test result(s), EKG, radiologic studies, plain films. Counseling: I juancho had a detailed discussion with the patient and/or guardian regarding: the historical points, exam findings, and any diagnostic results supporting the discharge/admit diagnosis, lab results, radiology results, the need for outpatient follow up, to return to the emergency department if symptoms worsen or persist or if there are any questions or concerns that arise at home. ED course: Patient is alert and non toxic in appearance. Patient has no complaints of chest pain. Due to complaints of palpitations, patient is advised to follow up with treasury analyst. Patient is otherwise advised to return to the ED if symptoms worsen. Patient understood and agrees with the plan of care. . 04/02 16:31 Order name: Basic Metabolic Panel; Complete Time: 18:[address] [facility] 04/02 16:31 Order name: CBC with Diff; Complete Time: 17:[address] [facility] 04/02 16:31 Order name: LFT's; Complete Time: 18:[address] [facility] 04/02 16:31 Order name: Magnesium; Complete Time: 18:[address] [facility] 04/02 16:31 Order name: NT PRO-BNP; Complete Time: 18:[address] [facility] 04/02 16:31 Order name: PT-INR; Complete Time: 18:[address] [facility] 04/02 16:31 Order name: Troponin (emerg Dept Use Only); Complete Time: 18:[address] [facility] 04/02 16:31 Order name: EKG; Complete Time: 16:[address] [facility] 04/02 16:31 Order name: Cardiac monitoring; Complete Time: 17:[address] [facility] 04/02 16:31 Order name: EKG - Nurse/Tech; Complete Time: 16:[address] [facility] 04/02 16:31 Order name: IV Saline Lock; Complete Time: 16:[address] [facility] 04/02 16:31 Order name: Labs collected and sent; Complete Time: 16:[address] [facility] 04/02 16:31 Order name: Chest For PE Angio CT; Complete Time: 18:[address] [facility] 04/02 16:31 Order name: TSH; Complete Time: 18:[address] [facility] 04/02 16:31 Order name: O2 Per Protocol; Complete Time: 16:[address] [facility] 04/02 16:31 Order name: O2 Sat Monitoring; Complete Time: 16:[address] [facility] Administered Medications: No medications were administered Disposition: 04/03 07:05 Co-signature as Attending Physician, Kamron Camilo MD. rn Disposition: 04/02/18 18:30 Discharged to Home. Impression: Palpitations. - Condition is Stable. - Discharge Instructions: Palpitations. - Medication Reconciliation Form, Thank You Letter, Antibiotic Education, Prescription Opioid Use form. - Follow up: Private Physician; When: 2 - 3 days; Reason: Recheck today's complaints, Continuance of care, Re-evaluation by your physician. Signatures: Dispatcher [employer] EDMS Stiven Stoner PA PA jmm Nieto, Roman, MD MD rn Attema, Lee, RN RN la1 Corrections: (The following items were deleted from the chart) 04/02 18:50 18:30 04/02/2018 18:30 Discharged to Home. Impression: Palpitations. Condition is la1 Stable. Forms are Medication Reconciliation Form, Thank You Letter, Antibiotic Education, Prescription Opioid Use. Follow up: Private Physician; When: 2 - 3 days; Reason: Recheck today's complaints, Continuance of care, Re-evaluation by your physician. [facility]
[2018-04-02 18:56] VITALS: O2SAT 98
[2018-04-02 18:57] VITALS: BP 114/79
--- NOTE | 2018-04-03 07:06 | EKG ---
Test Date: 2018-04-02 Test Time: 16:06:23 Station Engineer Chief: BILL MEASUREMENT RESULTS: Intervals: Rate: 76 IL: 176 QRSD: 92 QT: 392 QTc: 441 [place]: P: 28 IL: 176 QRS: 27 T: 35 INTERPRETIVE STATEMENTS: Normal sinus rhythm Normal ECG Compared to ECG 05/17/2017 18:10:04 Left ventricular hypertrophy no longer present Electronically Signed On 04-03-18 07:04:48 COMMERCIAL ACCOUNT EXECUTIVE by Saulo Rowell
== END 2018-04-02 18:50 | disposition home or self-care (01) ==
LOC: ER 15:57
DX: R00.2 Palpitations (principal); I10 Essential (primary) hypertension; Z88.0 Allergy status to penicillin
CPT/HCPCS: 36415; 71275; 80048; 80076; 83735; 83880; 84443; 84484; 85025; 85610; 93005; 99285; Q9967

== ENCOUNTER 2018-12-03 21:59 | Emergency (ER) | payer OTHER ==
[2018-12-03 23:07] LABS: Absolute Lymphocytes (CBC) 1.8 K/uL (0.7-4.9); Basophils % 0.3 % (0-1.3); Hematocrit 45.7 % (39.6-49.0); Lymphocytes % 25.6 % (15.3-44.8); MPV 9.7 fL (7.6-11.3); RBC Red Blood Cell Count 5.35 M/uL (4.33-5.43)
[2018-12-03 23:26] LABS: Albumin 3.8 g/dL (3.4-5.0); Bilirubin Direct 0.1 mg/dL (0-0.2); Bilirubin Total 0.6 mg/dL (0.2-1.0); Potassium 3.8 mmol/L (3.5-5.1)
--- NOTE | 2018-12-04 01:12 | ER ---
Nurse's Notes [facility] Name: Rei Euceda Jr Age: 58 yrs Sex: Male : 1960 Arrival Date: 12/03/2018 Time: 22:02 Bed 4 Private MD: Diagnosis: Upper abdominal pain, unspecified;hydronephrosis Presentation: 12/03 22:24 Presenting complaint: Patient states: i have abdominal pain for a week now. i also have mg2 issues with my stool. oziel been using miralax. i was diagnosed with prostate ca last July. there is a plan for surgery on Jan 16, 2019. Transition of care: patient was not received from another setting of care. Onset of symptoms was November 2018. Risk Assessment: Do you want to hurt yourself or someone else? Patient reports no desire to harm self or others. Initial Sepsis Screen: Does the patient meet any 2 criteria? No. Patient's initial sepsis screen is negative. Does the patient have a suspected source of infection? No. Patient's initial sepsis screen is negative. Care prior to arrival: None. 22:24 Method Of Arrival: Ambulatory mg2 22:24 Acuity: DAVID 3 mg2 Triage Assessment: 22:43 General: Appears in no apparent distress. uncomfortable, Behavior is calm, cooperative, cc3 appropriate for age. Pain: Complains of pain in abdomen. GI: Abdomen is round. Historical: - Allergies: 22:27 PENICILLINS; mg2 - Home Meds: 22:27 aspirin 81 mg Oral TbEC 1 tab once daily [Active]; losartan Oral [Active]; mg2 - PMHx: 22:27 allergies; Arthritis; Colitis; Hypertension; Ulcers; mg2 - PSHx: 22:27 shoulder sx; knee replacement; mg2 - Immunization history:: Flu vaccine is not up to date. - Social history:: Smoking status: Patient/guardian denies using tobacco, Patient/guardian denies using alcohol, street drugs, IV drugs. - Ebola Screening: : No symptoms or risks identified at this time. Screenin:43 Abuse screen: Denies threats or abuse. Denies injuries from another. Nutritional cc3 screening: No deficits noted. Tuberculosis screening: No symptoms or risk factors identified. Fall Risk Ambulatory Aid- None/Bed Rest/Nurse Assist (0 pts). Gait- Normal/Bed Rest/Wheelchair (0 pts) Mental Status- Oriented to own ability (0 pts). Assessment: 22:43 General: Appears in no apparent distress. uncomfortable, Behavior is calm, cooperative, cc3 appropriate for age. Pain: Complains of pain in abdomen Quality of pain is described as aching, Pain began since a week ago. Neuro: Level of Consciousness is awake, alert, obeys commands, Oriented to person, place, time, situation, Appropriate for age. Cardiovascular: Denies chest pain, palpitations, shortness of breath, Heart tones S1 S2 present Capillary refill < 3 seconds in bilateral fingers Patient's skin is warm and dry. Rhythm is sinus rhythm. Respiratory: Airway is patent Respiratory effort is even, unlabored, Respiratory pattern is regular, symmetrical. GI: Abdomen is round Bowel sounds present X 4 quads. Abd is soft X 4 quads Abd is non tender X 4 quads. : No signs and/or symptoms were reported regarding the genitourinary system. EENT: No signs and/or symptoms were reported regarding the EENT system. Derm: Skin is intact, is healthy with good turgor, Skin is pink, warm \T\ dry. normal. Musculoskeletal: Circulation, motion, and sensation intact. Range of motion: intact in all extremities. 23:49 Reassessment: Patient appears in no apparent distress at this time. Patient and/or cc3 family updated on plan of care and expected duration. Pain level reassessed. Patient is alert, oriented x 3, equal unlabored respirations, skin warm/dry/pink. Patient taken by vascular technician to their department by stretcher. 12/04 00:13 Reassessment: Patient appears in no apparent distress at this time. Patient and/or cc3 family updated on plan of care and expected duration. Pain level reassessed. Patient is alert, oriented x 3, equal unlabored respirations, skin warm/dry/pink. Patient came back from CT scan department, awaiting result. 01:30 Reassessment: Patient appears in no apparent distress at this time. Patient and/or cc3 family updated on plan of care and expected duration. Pain level reassessed. Patient is alert, oriented x 3, equal unlabored respirations, skin warm/dry/pink. Dr. Staton discharged the patient home, no prescription given. IV cannula removed and patient left ER vitally stable and ambulatory with his . No valuables left in the patient's room. Patient denies pain at this time. Patient states feeling better. Patient states symptoms have improved. Vital Signs: 12/03 22:27 BP 139 / 90; Pulse 77; Resp 18; Temp 98.1(O); Pulse Ox 97% on R/A; Weight 96.16 kg; mg2 Height 5 ft. 8 in. (172.72 cm); Pain 5/10; 23:15 BP 130 / 84; Pulse 73; Resp 18 S; Pulse Ox 96% on R/A; cc3 12/04 00:20 BP 120 / 75; Pulse 75; Resp 12 S; Pulse Ox 98% on R/A; cc3 01:20 BP 143 / 76; Pulse 78; Resp 15 S; Pulse Ox 98% on R/A; Pain 0/10; cc3 12/03 22:27 Body Mass Index 32.23 (96.16 kg, 172.72 cm) mg2 ED Course: 12/03 22:02 Patient arrived in ED. cf2 22:26 Triage completed. mg2 22:28 Arm band placed on. mg2 22:36 Evelio Staton MD is Attending Physician. gs 22:43 Mora Francois is Primary Nurse. cc3 22:43 Patient has correct armband on for positive identification. Placed in gown. Bed in low cc3 position. Call light in reach. Side rails up X 1. supervisor agency appointments on. Pulse ox on. NIBP on. 23:03 Inserted saline lock: 20 gauge in right antecubital area, using aseptic technique. oe forearm, using aseptic technique. Blood collected. 12/04 00:30 CT Abd/Pelvis - IV Contrast Only In Process Unspecified. EDMS 01:30 No provider procedures requiring assistance completed. IV discontinued, intact, cc3 bleeding controlled, No redness/swelling at site. Pressure dressing applied. Administered Medications: No medications were administered Outcome: 01:11 Discharge ordered by . 01:30 Discharged to home ambulatory, with family. cc3 01:30 Condition: stable 01:30 Discharge instructions given to patient, Instructed on discharge instructions, follow up and referral plans. medication usage, Demonstrated understanding of instructions, follow-up care. 01:36 Patient left the ED. cc3 Signatures: Dispatcher [employer] EDOH RandleNilesh oviedo Gregory, MD MD Diego Macario RN RN mg2 Mora Francois cc3 Micah Scruggs cf2 Corrections: (The following items were deleted from the chart) 01:40 12/03 22:43 GI: Abdomen is round Bowel sounds present X 4 quads. Abd is soft X 4 quads cc3 Abdomen is tender to palpation X 4 quads. cc3
--- NOTE | 2018-12-04 01:13 | EDPHYS ---
Physician Documentation [facility] Name: Rei Euceda Jr Age: 58 yrs Sex: Male : 1960 Arrival Date: 12/03/2018 Time: 22:02 Bed 4 Private MD: ED Physician Evelio Staton HPI: 12/04 01:09 This 58 yrs old Male presents to ER via Ambulatory with complaints of gs Abdominal Pain. 01:09 The patient presents with abdominal pain in the upper abdomen. Onset: The gs symptoms/episode began/occurred 1 week(s) ago. The symptoms do not radiate. Associated signs and symptoms: Pertinent negatives: nausea and vomiting, diarrhea. The symptoms are described as crampy. Modifying factors: The symptoms are alleviated by nothing, the symptoms are aggravated by nothing. Severity of pain: At its worst the pain was moderate in the emergency department the pain is unchanged. The patient has experienced similar episodes in the past, a few times. The patient has not recently seen a physician. Historical: - Allergies: 12/03 22:27 PENICILLINS; mg2 - Home Meds: 22:27 aspirin 81 mg Oral TbEC 1 tab once daily [Active]; losartan Oral [Active]; mg2 - PMHx: 22:27 allergies; Arthritis; Colitis; Hypertension; Ulcers; mg2 - PSHx: 22:27 shoulder sx; knee replacement; mg2 - Immunization history:: Flu vaccine is not up to date. - Social history:: Smoking status: Patient/guardian denies using tobacco, Patient/guardian denies using alcohol, street drugs, IV drugs. - Ebola Screening: : No symptoms or risks identified at this time. ROS: 12/04 01:09 All other systems are negative. gs Exam: 01:09 Head/Face: Normocephalic, atraumatic. Eyes: Pupils equal round and reactive to light, gs extra-ocular motions intact. Lids and lashes normal. Conjunctiva and sclera are non-icteric and not injected. Cornea within normal limits. Periorbital areas with no swelling, redness, or edema. ENT: Nares patent. No nasal discharge, no septal abnormalities noted. Tympanic membranes are normal and external auditory canals are clear. Oropharynx with no redness, swelling, or masses, exudates, or evidence of obstruction, uvula midline. Mucous membranes moist. Neck: Trachea midline, no thyromegaly or masses palpated, and no cervical lymphadenopathy. Supple, full range of motion without nuchal rigidity, or vertebral point tenderness. No Meningismus. Chest/axilla: Normal chest wall appearance and motion. Nontender with no deformity. No lesions are appreciated. Cardiovascular: Regular rate and rhythm with a normal S1 and S2. No gallops, murmurs, or rubs. Normal PMI, no JVD. No pulse deficits. Respiratory: Lungs have equal breath sounds bilaterally, clear to auscultation and percussion. No rales, rhonchi or wheezes noted. No increased work of breathing, no retractions or nasal flaring. Back: No spinal tenderness. No costovertebral tenderness. Full range of motion. Skin: Warm, dry with normal turgor. Normal color with no rashes, no lesions, and no evidence of cellulitis. MS/ Extremity: Pulses equal, no cyanosis. Neurovascular intact. Full, normal range of motion. Neuro: Awake and alert, GCS 15, oriented to person, place, time, and situation. Cranial nerves II-XII grossly intact. Motor strength 5/5 in all extremities. Sensory grossly intact. Cerebellar exam normal. Normal gait. 01:09 Constitutional: The patient appears alert, awake. 01:09 ECG was reviewed by the Attending Physician. 01:09 Abdomen/GI: Palpation: mild abdominal tenderness, in the epigastric area, right upper quadrant and left upper quadrant. Vital Signs: 12/03 22:27 BP 139 / 90; Pulse 77; Resp 18; Temp 98.1(O); Pulse Ox 97% on R/A; Weight 96.16 kg; mg2 Height 5 ft. 8 in. (172.72 cm); Pain 5/10; 23:15 BP 130 / 84; Pulse 73; Resp 18 S; Pulse Ox 96% on R/A; cc3 12/04 00:20 BP 120 / 75; Pulse 75; Resp 12 S; Pulse Ox 98% on R/A; cc3 01:20 BP 143 / 76; Pulse 78; Resp 15 S; Pulse Ox 98% on R/A; Pain 0/10; cc3 12/03 22:27 Body Mass Index 32.23 (96.16 kg, 172.72 cm) mg2 MDM: 12/03 22:52 Patient medically screened. gs 12/04 01:09 Differential diagnosis: bowel obstruction, diverticulitis, gastritis, myocardia gs ischemia or infarction. Data reviewed: vital signs, nurses notes, lab test result(s), EKG, radiologic studies. Counseling: I had a detailed discussion with the patient and/or guardian regarding: the historical points, exam findings, and any diagnostic results supporting the discharge/admit diagnosis, the need for outpatient follow up. Response to treatment: the patient's symptoms have markedly improved after treatment. 12/03 22:56 Order name: Basic Metabolic Panel; Complete Time: 23:56 12/03 22:56 Order name: CBC with Diff; Complete Time: :56 12/03 22:56 Order name: Hepatic Function; Complete Time: :56 12/03 22:56 Order name: Lipase; Complete Time: :56 12/03 21:56 Order name: IV Saline Lock; Complete Time: 23:00 12/03 22:56 Order name: CT Abd/Pelvis - IV Contrast Only 12/03 21:56 Order name: Labs collected and sent; Complete Time: 23:04 12/03 21:56 Order name: EKG - Nurse/Tech; Complete Time: 23:19 EC:09 Rate is 62 beats/min. Rhythm is regular. [place] interval is normal. QRS interval is normal. gs T waves are Normal. No ST changes noted. Clinical impression: Normal ECG. Interpreted by me. Administered Medications: No medications were administered Disposition: 12/04/18 01:11 Discharged to Home. Impression: Upper abdominal pain, unspecified, hydronephrosis. - Condition is Stable. - Discharge Instructions: Abdominal Pain, Adult, Colic, Hydronephrosis. - Medication Reconciliation Form, Thank You Letter, Antibiotic Education, Prescription Opioid Use form. - Follow up: Private Physician; When: 1 - 2 days; Reason: Re-evaluation by your physician. Signatures: Dispatcher [employer] EDMD Evelio Staton MD MD Diego Macario RN RN Mora Menard cc3 Corrections: (The following items were deleted from the chart) 01:36 01:11 12/04/2018 01:11 Discharged to Home. Impression: Upper abdominal pain, cc3 unspecified; hydronephrosis. Condition is Stable. Forms are Medication Reconciliation Form, Thank You Letter, Antibiotic Education, Prescription Opioid Use. Follow up: Private Physician; When: 1 - 2 days; Reason: Re-evaluation by your physician. gs
[2018-12-04 01:41] VITALS: TEMP 98.1
[2018-12-04 01:43] VITALS: BP 120/75; O2SAT 98
--- NOTE | 2018-12-05 06:15 | EKG ---
Test Date: 2018-12-03 Test Time: 23:17:40 Senior Chemical Process Engineer: MENDEL MEASUREMENT RESULTS: Intervals: Rate: 62 WA: 188 QRSD: 94 QT: 404 QTc: 410 Union: P: 43 WA: 188 QRS: 31 T: 31 INTERPRETIVE STATEMENTS: Normal sinus rhythm with sinus arrhythmia Normal ECG Compared to ECG 04/02/2018 16:06:23 No significant changes Electronically Signed On 12-05-18 06:14:23 CDT by Jack Madsen
--- NOTE | 2018-12-06 18:13 | RAD REPORT ---
EXAM DESCRIPTION: CT - Abdomen Pelvis W Contrast - 12/04/2018 12:26 am CLINICAL HISTORY: Abdominal pain. COMPARISON: 12/23/2014 TECHNIQUE: CT scan of the abdomen and pelvis was performed with IV contrast. This exam was performed according to our departmental dose-optimization program, which includes automated exposure control, adjustment of the mA and/or kV according to patient size and/or use of iterative reconstruction techn ique. FINDINGS: The lung bases are clear. No pleural or pericardial effusions. No hiatal hernia. Hepatic steatosis. The gallbladder is contracted, limiting evaluation. Spleen, pancreas, adrenal glan ds, and left kidney are unremarkable. There is moderate right hydronephrosis without hydroureter or o bstructing stones suggesting chronic UPJ obstruction, unchanged from prior study. Pelvic organs are u nremarkable. No small bowel obstruction. The appendix is normal. No evidence of acute diverticulitis. No adenopath y, free fluid, or free air is identified. The aorta is normal caliber. The osseous structures are int act. No abnormal body wall hernia is seen. IMPRESSION: 1. No acute abdominal or pelvic pathology. 2. Chronic right UPJ obstruction with moderate right hydronephrosis. No obstructing urinary stone. Electronically signed by: Kevin Graham MD 12/04/2018 12:49 AM CDT Due to temporary technical issues with the PACS/Fluency reporting system, reports are being signed by the in house radiologist as a courtesy to ensure prompt reporting. The interpreting radiologist is f ully responsible for the content of the report.
== END 2018-12-04 01:36 | disposition home or self-care (01) ==
LOC: ER 21:59
DX: R10.10 Upper abdominal pain, unspecified (principal); I10 Essential (primary) hypertension; Z88.0 Allergy status to penicillin
CPT/HCPCS: 93005; 85025; 80048; 36415; 80076; 83690; 74177; 99284; Q9967

== ENCOUNTER 2019-01-27 15:11 | Emergency (ER) | payer OTHER ==
[2019-01-27] MEDS ORDERED: LIDOCAINE VISCOUS 2% SOLN 15 ML UDC ONE (16:31)
[2019-01-27] MEDS ORDERED: LIDOCAINE JELLY 2%- 5 ML TUBE ONE (16:33)
--- NOTE | 2019-01-27 17:32 | EDPHYS ---
Physician Documentation [facility] Name: Rei Euceda Jr Age: 59 yrs Sex: Male : 1960 Arrival Date: 01/27/2019 Time: 15:13 Bed 18 Private MD: ED Physician Jan Hooker HPI: 01/27 15:22 This 59 yrs old Male presents to ER via Ambulatory with complaints of Urinary kb Problem. 15:23 The patient presents with a Shepard catheter problem, is not draining, is leaking urine. kb Onset: The symptoms/episode began/occurred today. Modifying factors: The symptoms are alleviated by nothing, the symptoms are aggravated by nothing. Associated signs and symptoms: The patient has no apparent associated signs or symptoms. Severity of symptoms: At their worst the symptoms were moderate, in the emergency department the symptoms are unchanged. The patient has not experienced similar symptoms in the past. The patient has been recently seen by a physician:. Pt reports he had prostate surgery on 01/16 and they placed a shepard. Followed up on Wednesday to have shepard removed, but the cystogram showed some leaking so they wanted to keep it in place until Wednesday. Reports he believes the catheter is clogged. States it hasn't been draining as much today and urine leaks out around catheter at times. Denies pain. Reports fullness to bladder area. States his urine has been a little cloudy with particles, but no shayla blood. Historical: - Allergies: 15:14 PENICILLINS; sv - PMHx: 15:14 allergies; Arthritis; Colitis; Hypertension; Ulcers; sv - PSHx: 15:14 shoulder sx; knee replacement; prostate; sv - Immunization history:: Adult Immunizations up to date. - Social history:: Smoking status: Patient/guardian denies using tobacco. - Ebola Screening: : Patient negative for fever greater than or equal to 101.5 degrees Fahrenheit, and additional compatible Ebola Virus Disease symptoms Patient denies exposure to infectious person Patient denies travel to an Ebola-affected area in the 21 days before illness onset No symptoms or risks identified at this time. ROS: 15:21 Constitutional: Negative for fever, chills, and weight loss, Cardiovascular: Negative kb for chest pain, palpitations, and edema, Respiratory: Negative for shortness of breath, cough, wheezing, and pleuritic chest pain, Abdomen/GI: Negative for abdominal pain, nausea, vomiting, diarrhea, and constipation, Back: Negative for injury and pain, MS/Extremity: Negative for injury and deformity, Skin: Negative for injury, rash, and discoloration, Neuro: Negative for headache, weakness, numbness, tingling, and seizure. 15:21 : Positive for leaking around shepard, shepard not draining as much as it did before. Exam: 15:21 Constitutional: This is a well developed, well nourished patient who is awake, alert, kb and in no acute distress. Head/Face: Normocephalic, atraumatic. Neck: Trachea midline, no thyromegaly or masses palpated, and no cervical lymphadenopathy. Supple, full range of motion without nuchal rigidity, or vertebral point tenderness. No Meningismus. Chest/axilla: Normal chest wall appearance and motion. Nontender with no deformity. No lesions are appreciated. Cardiovascular: Regular rate and rhythm with a normal S1 and S2. No gallops, murmurs, or rubs. Normal PMI, no JVD. No pulse deficits. Respiratory: Lungs have equal breath sounds bilaterally, clear to auscultation and percussion. No rales, rhonchi or wheezes noted. No increased work of breathing, no retractions or nasal flaring. Abdomen/GI: Soft, non-tender, with normal bowel sounds. No distension or tympany. No guarding or rebound. No evidence of tenderness throughout. Back: No spinal tenderness. No costovertebral tenderness. Full range of motion. Skin: Warm, dry with normal turgor. Normal color with no rashes, no lesions, and no evidence of cellulitis. MS/ Extremity: Pulses equal, no cyanosis. Neurovascular intact. Full, normal range of motion. Neuro: Awake and alert, GCS 15, oriented to person, place, time, and situation. Cranial nerves II-XII grossly intact. Motor strength 5/5 in all extremities. Sensory grossly intact. Cerebellar exam normal. Normal gait. Vital Signs: 15:14 BP 130 / 91; Pulse 91; Resp 16; Temp 97.7; Pulse Ox 99% ; Weight 93.89 kg; Height 5 ft. sv 8 in. (172.72 cm); 16:33 BP 129 / 81; Pulse 90; Resp 16; Pulse Ox 99% on R/A; mh5 17:31 BP 128 / 81; Pulse 89; Resp 17; Temp 97.8(O); Pulse Ox 98% on R/A; mh5 15:14 Body Mass Index 31.47 (93.89 kg, 172.72 cm) sv MDM: 15:16 Patient medically screened. kb 15:22 Data reviewed: vital signs, nurses notes. Data interpreted: Pulse oximetry: on room air kb is 99 %. Interpretation: normal. 16:23 Counseling: I had a detailed discussion with the patient and/or guardian regarding: the kb historical points, exam findings, and any diagnostic results supporting the discharge/admit diagnosis, the need for outpatient follow up, a urologist, to return to the emergency department if symptoms worsen or persist or if there are any questions or concerns that arise at home. ED course: Shepard catheter draining well after irrigation. No gross blood noted. Catheter balloon was only inflated with 12cc of water, but says it should be filled with 30cc. Balloon filled with recommended amount of water. . 16:31 ED course: Call placed to Dr Gordon at [facility] (pt's urologist). . kb 16:34 ED course: Pt reports some intermittent pain at meatus and states he has been waiting kb for the urologist to call in some lidocaine gel for it. Requests some at this time since he has been unable to get the prescription. 17:25 ED course: Still awaiting call back from Dr Gordon. Pt reports symptoms have resolved kb and shepard is draining as it is supposed to.. 17:29 ED course: Pt is ready to go home. Does not want to wait for Dr Gordon to return our kb phone calls. Pt will return for any concerns, including decreased drainage. Pt has follow up with Dr Gordon on Wednesday at 12:30. 17:59 ED course: Dr Bullock (dimensional engineer for Dr Gordon) returned my call. I informed her of pt's kb condition, the interventions we did here and that pt went home. Dr Bullock happy with care we provided and will follow up with pt. 01/27 15:21 [facility]pard; Complete Time: 15:40 kb Administered Medications: 16:38 Drug: Lidocaine Gel 2 % 1 application Route: Mucous Membrane; em Disposition: 01/28 07:21 Co-signature as Attending Physician, Jan Hooker MD I agree with the assessment and kdr plan of care. Disposition: 01/27/19 17:31 Discharged to Home. Impression: Encounter for fitting and adjustment of urinary device - leaking shepard catheter, not draining. - Condition is Stable. - Discharge Instructions: Shepard Catheter Care, Adult, [id number]. - Medication Reconciliation Form, Thank You Letter, Antibiotic Education, Prescription Opioid Use form. - Follow up: Emergency Department; When: As needed; Reason: Worsening of condition. Follow up: Private Physician; When: 2 - 3 days; Reason: Recheck today's complaints, Continuance of care, Re-evaluation by your physician. Signatures: Ashley Villa FNP-C FNP-Fina Vila RN RN Jan Garcia MD MD kdr Dereje Gonzalez, RECYCLING ATTENDANT RECYCLING ATTENDANT em Corrections: (The following items were deleted from the chart) 01/27 15:29 15:23 Pt reports he had prostate surgery on 01/16 and they placed a shepard. Followed up kb on Wednesday to have shepard removed, but the cystogram showed some leaking so they wanted to keep it in place until Wednesday. Reports he believes the catheter is clogged. States it hasn't been draining as much today and urine leaks out around catheter at times. . kb 15:40 15:21 Bladder Scanner ordered. kb em 17:30 16:31 ED course: Call placed to Dr Gordon at [facility] (pt's urologist). . kb kb 17:30 17:29 ED course: Pt is ready to go home. Does not want to wait for Dr Gordon to return kb our phone calls. Pt will return for any concerns, including decreased drainage. . kb 17:44 17:31 01/27/2019 17:31 Discharged to Home. Impression: Encounter for fitting and em adjustment of urinary device - leaking shepard catheter, not draining. Condition is Stable. Forms are Medication Reconciliation Form, Thank You Letter, Antibiotic Education, Prescription Opioid Use. Follow up: Emergency Department; When: As needed; Reason: Worsening of condition. Follow up: Private Physician; When: 2 - 3 days; Reason: Recheck today's complaints, Continuance of care, Re-evaluation by your physician. kb
--- NOTE | 2019-01-27 17:32 | ER ---
Nurse's Notes [facility] Name: Rei Euceda Jr Age: 59 yrs Sex: Male : 1960 Arrival Date: 01/27/2019 Time: 15:13 Bed 18 Private MD: Diagnosis: Encounter for fitting and adjustment of urinary device-leaking shepard catheter, not draining Presentation: 01/27 15:13 Presenting complaint: Patient states: had prostate sx on 01/16/19 and a urinary sv catheter was placed and thinks that it is plugged. Transition of care: patient was not received from another setting of care. Onset of symptoms was January 27, 2019. Risk Assessment: Do you want to hurt yourself or someone else? Patient reports no desire to harm self or others. Care prior to arrival: None. 15:13 Method Of Arrival: Ambulatory sv 15:13 Acuity: DAVID 3 sv 15:30 Initial Sepsis Screen: Does the patient meet any 2 criteria? No. Patient's initial em sepsis screen is negative. Does the patient have a suspected source of infection? No. Patient's initial sepsis screen is negative. Historical: - Allergies: 15:14 PENICILLINS; sv - PMHx: 15:14 allergies; Arthritis; Colitis; Hypertension; Ulcers; sv - PSHx: 15:14 shoulder sx; knee replacement; prostate; sv - Immunization history:: Adult Immunizations up to date. - Social history:: Smoking status: Patient/guardian denies using tobacco. - Ebola Screening: : Patient negative for fever greater than or equal to 101.5 degrees Fahrenheit, and additional compatible Ebola Virus Disease symptoms Patient denies exposure to infectious person Patient denies travel to an Ebola-affected area in the 21 days before illness onset No symptoms or risks identified at this time. Screenin:30 Abuse screen: Denies threats or abuse. Nutritional screening: No deficits noted. em Tuberculosis screening: No symptoms or risk factors identified. Fall Risk None identified. Assessment: 15:30 General: Appears in no apparent distress. comfortable, Behavior is calm, cooperative, em appropriate for age, Denies fever. Pain: Denies pain. Neuro: Level of Consciousness is awake, alert, obeys commands, Oriented to person, place, time, situation, Appropriate for age. Cardiovascular: Capillary refill < 3 seconds Patient's skin is warm and dry. Respiratory: Airway is patent Respiratory effort is even, unlabored, Respiratory pattern is regular, symmetrical. GI: Abdomen is flat. : Shepard in place to gravity drainage Urine is clear, Genitalia appear normal leaking around catheter note. Derm: Skin is intact, is healthy with good turgor, Skin is pink, warm \T\ dry. Musculoskeletal: Circulation, motion, and sensation intact. Capillary refill < 3 seconds, Range of motion: intact in all extremities. 15:45 General: The previous assessment is accurate. Call light remains within reach. ss 16:30 Reassessment: Patient appears in no apparent distress at this time. drained catheter em ballon, has 12 cc of NS in ballon, amount recommended in catheter ballon is 30 cc, provider notified, pt will attempt to contact physician to see if catheter may be filled to 30 cc as recommended on cath. 17:30 Reassessment: shepard bag draining, has emptied 1 liter of clear yellow urine, small em amount of leakage noted around catheter, received order to fill catheter to 30 cc of NS. Vital Signs: 15:14 BP 130 / 91; Pulse 91; Resp 16; Temp 97.7; Pulse Ox 99% ; Weight 93.89 kg; Height 5 ft. sv 8 in. (172.72 cm); 16:33 BP 129 / 81; Pulse 90; Resp 16; Pulse Ox 99% on R/A; mh5 17:31 BP 128 / 81; Pulse 89; Resp 17; Temp 97.8(O); Pulse Ox 98% on R/A; mh5 15:14 Body Mass Index 31.47 (93.89 kg, 172.72 cm) sv ED Course: 15:13 Patient arrived in ED. sv 15:14 Triage completed. sv 15:14 Arm band placed on. sv 15:16 Ashley Villa F[facility]-C [facility] kb 15:16 Jan Hooker MD is Attending Physician. kb 15:17 Dereje Gonzalez LVN is Primary Nurse. em 15:30 Patient has correct armband on for positive identification. Placed in gown. Bed in low em position. Call light in reach. Side rails up X2. Adult w/ patient. 15:35 Bladder irrigated via Shepard with 100 ml normal saline returned yellow urine Patient em tolerated well. 17:39 No provider procedures requiring assistance completed. Patient did not have IV access em during this emergency room visit. Administered Medications: 16:38 Drug: Lidocaine Gel 2 % 1 application Route: Mucous Membrane; em Outcome: 17:31 Discharge ordered by . dileep 17:40 Discharged to home ambulatory. em 17:40 Condition: good 17:40 Discharge instructions given to patient, Instructed on discharge instructions, follow up and referral plans. Demonstrated understanding of instructions, follow-up care. 17:44 Patient left the ED. em Signatures: Ashley Villa, WEB OFFSET PRESS FEEDER-C WEB OFFSET PRESS FEEDER-Fina Vila, RN RN sv Dereje Gonzalez, PHOTOGRAPHIC PRESS SCREWMAKER PHOTOGRAPHIC PRESS SCREWMAKER em Ida Lea, BELINDA TREVINO Alyson Mercado [facility] Corrections: (The following items were deleted from the chart) 15:16 15:14 Pulse 91bpm; Resp 16bpm; Pulse Ox 99%; Temp 97.7F; 93.89 kg; Height 5 ft. 8 in.; sv BMI: 31.4; sv
[2019-01-27 18:10] VITALS: BP 128/81; TEMP 97.8; O2SAT 98
== END 2019-01-27 17:44 | disposition home or self-care (01) ==
LOC: ER 15:11
DX: Z46.6 Encounter for fitting and adjustment of urinary device (principal); I10 Essential (primary) hypertension; Z88.0 Allergy status to penicillin
CPT/HCPCS: 51700; 99284

== ENCOUNTER 2019-02-02 08:25 | Emergency (ER) | payer OTHER ==
--- NOTE | 2019-02-02 09:02 | EDPHYS ---
Physician Documentation [facility] Name: Rei Euceda Jr Age: 59 yrs Sex: Male : 1960 Arrival Date: 02/02/2019 Time: 08:27 Bed 14 Private MD: Eligio Baca T ED Physician Timothy Joel HPI: 02/02 08:56 This 59 yrs old Male presents to ER via Ambulatory with complaints of Urinary torres Problem. 08:56 The patient presents with a Salomon catheter problem, urinary symptoms. Onset: The torres symptoms/episode began/occurred 1 day(s) ago. Modifying factors: The symptoms are alleviated by nothing, the symptoms are aggravated by nothing. Associated signs and symptoms: The patient has no apparent associated signs or symptoms. Historical: - Allergies: 08:27 PENICILLINS; rb1 - Home Meds: 08:27 aspirin 81 mg Oral TbEC 1 tab once daily [Active]; losartan Oral [Active]; rb1 - PMHx: 08:27 allergies; Arthritis; Colitis; Hypertension; Ulcers; rb1 - PSHx: 08: shoulder sx; knee replacement; rb1 08:27 prostatectomy; rb1 - Immunization history:: Flu vaccine is not up to date. - Social history:: Smoking status: Patient/guardian denies using tobacco. - Ebola Screening: : Patient negative for fever greater than or equal to 101.5 degrees Fahrenheit, and additional compatible Ebola Virus Disease symptoms. - Family history:: not pertinent. ROS: 08:56 Constitutional: Negative for fever, chills, and weight loss, Eyes: Negative for injury, torres pain, redness, and discharge, ENT: Negative for injury, pain, and discharge, Neck: Negative for injury, pain, and swelling, Cardiovascular: Negative for chest pain, palpitations, and edema, Respiratory: Negative for shortness of breath, cough, wheezing, and pleuritic chest pain, Abdomen/GI: Negative for abdominal pain, nausea, vomiting, diarrhea, and constipation, Back: Negative for injury and pain, MS/Extremity: Negative for injury and deformity, Skin: Negative for injury, rash, and discoloration, Neuro: Negative for headache, weakness, numbness, tingling, and seizure, Psych: Negative for depression, anxiety, suicide ideation, homicidal ideation, and hallucinations, Allergy/Immunology: Negative for hives, rash, and allergies, Endocrine: Negative for neck swelling, polydipsia, polyuria, polyphagia, and marked weight changes, Hematologic/Lymphatic: Negative for swollen nodes, abnormal bleeding, and unusual bruising. 08:56 : Positive for urinary frequency, burning with urination, bladder incontinence Exam: 08:56 Constitutional: This is a well developed, well nourished patient who is awake, alert, torres and in no acute distress. Head/Face: Normocephalic, atraumatic. Eyes: Pupils equal round and reactive to light, extra-ocular motions intact. Lids and lashes normal. Conjunctiva and sclera are non-icteric and not injected. Cornea within normal limits. Periorbital areas with no swelling, redness, or edema. ENT: Nares patent. No nasal discharge, no septal abnormalities noted. Tympanic membranes are normal and external auditory canals are clear. Oropharynx with no redness, swelling, or masses, exudates, or evidence of obstruction, uvula midline. Mucous membranes moist. Neck: Trachea midline, no thyromegaly or masses palpated, and no cervical lymphadenopathy. Supple, full range of motion without nuchal rigidity, or vertebral point tenderness. No Meningismus. Chest/axilla: Normal chest wall appearance and motion. Nontender with no deformity. No lesions are appreciated. Cardiovascular: Regular rate and rhythm with a normal S1 and S2. No gallops, murmurs, or rubs. Normal PMI, no JVD. No pulse deficits. Respiratory: Lungs have equal breath sounds bilaterally, clear to auscultation and percussion. No rales, rhonchi or wheezes noted. No increased work of breathing, no retractions or nasal flaring. Abdomen/GI: Soft, non-tender, with normal bowel sounds. No distension or tympany. No guarding or rebound. No evidence of tenderness throughout. Back: No spinal tenderness. No costovertebral tenderness. Full range of motion. Skin: Warm, dry with normal turgor. Normal color with no rashes, no lesions, and no evidence of cellulitis. MS/ Extremity: Pulses equal, no cyanosis. Neurovascular intact. Full, normal range of motion. Neuro: Awake and alert, GCS 15, oriented to person, place, time, and situation. Cranial nerves II-XII grossly intact. Motor strength 5/5 in all extremities. Sensory grossly intact. Cerebellar exam normal. Normal gait. Psych: Awake, alert, with orientation to person, place and time. Behavior, mood, and affect are within normal limits. 08:56 : Male external genitalia: erythema, of the meatus is seen, swelling, is not appreciated, tenderness, is not appreciated. 08:56 Neuro: Orientation: is normal, appropriate for stated age, no acute changes, Mentation: is normal, appropriate for stated age, no acute changes, Memory: is normal, appropriate for stated age, no acute changes. Vital Signs: 08:27 BP 122 / 76; Pulse 72; Resp 17; Temp 97.9(O); Pulse Ox 99% on R/A; Weight 92.53 kg (R); rb1 Height 5 ft. 8 in. (172.72 cm) (R); Pain 3/10; 08:27 Body Mass Index 31.02 (92.53 kg, 172.72 cm) [facility] MDM: 08:32 Patient medically screened. [facility] 08:59 Data reviewed: vital signs, nurses notes, lab test result(s), urinalysis. [facility] 02/02 08:36 Order name: Urine Microscopic Only [facility] 02/02 08:48 Order name: Urine Culture 02/02 08:56 Order name: Bladder Scanner: document pvr; Complete Time: 09:08 [facility] 02/02 08:58 Order name: Urine Dipstick--Ancillary (enter results) 02/02 09:13 Order name: Urine Microscopic Only [facility] 02/02 08:56 Order name: Urine Dipstick-Ancillary (obtain specimen); Complete Time: 09:08 [facility] Administered Medications: 09:11 Drug: Cipro 500 mg Route: PO; [facility] 09:19 Follow up: Response: Medication administered at discharge. [facility] Disposition: 02/02/19 09:01 Discharged to Home. Impression: Dysuria. - Condition is Stable. - Discharge Instructions: Dysuria. - Prescriptions for Cipro 500 mg Oral Tablet - take 1 tablet by ORAL route every 12 hours for 7 days; 14 tablet. - Medication Reconciliation Form, Thank You Letter, Antibiotic Education, Prescription Opioid Use form. - Follow up: Eligio Baca MD; When: 2 - 3 days; Reason: Recheck today's complaints, Continuance of care, Re-evaluation by your physician. Follow up: Private Physician; When: 1 - 2 days; Reason: Recheck today's complaints, Continuance of care, Re-evaluation by your physician. - Problem is new. - Symptoms have improved. Signatures: Dispatcher [employer] Timothy Merino MD MD cha Barber, Rebecca RN RN rb1 Corrections: (The following items were deleted from the chart) 09:19 09:01 02/02/2019 09:01 Discharged to Home. Impression: Dysuria. Condition is Stable. rb1 Forms are Medication Reconciliation Form, Thank You Letter, Antibiotic Education, Prescription Opioid Use. Follow up: Eligio Baca; When: 2 - 3 days; Reason: Recheck today's complaints, Continuance of care, Re-evaluation by your physician. Follow up: Private Physician; When: 1 - 2 days; Reason: Recheck today's complaints, Continuance of care, Re-evaluation by your physician. Problem is new. Symptoms have improved. torres
--- NOTE | 2019-02-02 09:02 | ER ---
Nurse's Notes [facility] Name: Rei Euceda Jr Age: 59 yrs Sex: Male : 1960 Arrival Date: 02/02/2019 Time: 08:27 Bed 14 Private MD: Eligio Baca T Diagnosis: Dysuria Presentation: 02/02 08:42 Presenting complaint: Patient states: prostatectomy 01/16. Salomon removed 3 days ago. Pt ss reports mild nausea and burning with urination and is concerned because when he checked his temperature it was 95 or 96 degrees and is concerned for sepsis. Transition of care: patient was not received from another setting of care. Onset of symptoms was February 02, 2019. Risk Assessment: Do you want to hurt yourself or someone else? Patient reports no desire to harm self or others. Initial Sepsis Screen: Does the patient meet any 2 criteria? No. Patient's initial sepsis screen is negative. Does the patient have a suspected source of infection? Yes: Dysuria/Frequency/Urgency/UTI Catheter related infection (Salomon/dialysis/PICC/central line). Care prior to arrival: None. 08:42 Method Of Arrival: Ambulatory ss 08:42 Acuity: DAVID 3 ss Triage Assessment: 08:27 General: Appears in no apparent distress. comfortable, Behavior is calm, cooperative, rb1 Denies fever. Pain: Complains of pain in pelvic Pain currently is 3 out of 10 on a pain scale. Neuro: Level of Consciousness is awake, alert, obeys commands, Oriented to person, place, time, situation. Cardiovascular: Capillary refill < 3 seconds is brisk in bilateral fingers. Respiratory: Airway is patent Respiratory effort is even, unlabored, Respiratory pattern is regular, symmetrical. GI: Reports nausea. : Reports burning with urination, since Wednesday. Derm: Skin is pink, warm \T\ dry. 08:27 General: Pt. had Salomon removed on Wednesday, after having a Prostatectomy on the January.. Historical: - Allergies: 08: PENICILLINS; rb1 - Home Meds: : aspirin 81 mg Oral TbEC 1 tab once daily [Active]; losartan Oral [Active]; rb1 - PMHx: 08: allergies; Arthritis; Colitis; Hypertension; Ulcers; rb1 - PSHx: 08:27 shoulder sx; knee replacement; rb1 08:27 prostatectomy; rb1 - Immunization history:: Flu vaccine is not up to date. - Social history:: Smoking status: Patient/guardian denies using tobacco. - Ebola Screening: : Patient negative for fever greater than or equal to 101.5 degrees Fahrenheit, and additional compatible Ebola Virus Disease symptoms. - Family history:: not pertinent. Screenin:27 Abuse screen: Denies threats or abuse. Nutritional screening: No deficits noted. rb1 Tuberculosis screening: No symptoms or risk factors identified. Fall Risk None identified. Assessment: 08:27 General: See triage assessment. rb1 09:15 Reassessment: Patient appears in no apparent distress at this time. No changes from rb1 previously documented assessment. Vital Signs: 08:27 BP 122 / 76; Pulse 72; Resp 17; Temp 97.9(O); Pulse Ox 99% on R/A; Weight 92.53 kg (R); rb1 Height 5 ft. 8 in. (172.72 cm) (R); Pain 3/10; 08:27 Body Mass Index 31.02 (92.53 kg, 172.72 cm) [facility] ED Course: 08:27 Patient arrived in ED. mr 08:27 Eligio Baca MD is Private Physician. mr 08:27 Patient has correct armband on for positive identification. Bed in low position. Call rb1 light in reach. Side rails up X 1. Pulse ox on. NIBP on. 08:31 Laura Jordan, RN is Primary Nurse. rb1 08:32 Timothy Joel MD is Attending Physician. torres 08:42 Arm band placed on right wrist. ss 08:43 Triage completed. ss 09:00 Eligio Baca MD is Referral Physician. torres 09:19 No provider procedures requiring assistance completed. Patient did not have IV access rb1 during this emergency room visit. Administered Medications: 09:11 Drug: Cipro 500 mg Route: PO; rb1 09:19 Follow up: Response: Medication administered at discharge. [facility] Outcome: 09:01 Discharge ordered by . torres 09:19 Patient left the ED. rb1 09:19 Discharged to home ambulatory. rb1 09:19 Condition: stable 09:19 Discharge instructions given to patient, Instructed on discharge instructions, follow up and referral plans. medication usage, Demonstrated understanding of instructions, follow-up care, medications, Prescriptions given X 1. Signatures: Timothy Joel MD MD cha Rivera, Mary mr Ida Lea, RN RN ss Laura Jordan RN RN rb1
[2019-02-02 09:12] LABS: Urine Bacteria 20-50 /HPF (NONE SEEN)
[2019-02-02] MEDS ORDERED: CIPROFLOXACIN HCL 500 MG TAB ONE (09:12)
[2019-02-02 09:13] LABS: Urine Culture Reflex Order NOT NEEDED; Urine Mucus 1+ /HPF (NONE SEEN)
[2019-02-02 09:48] VITALS: BP 122/76; TEMP 97.9; O2SAT 99
[2019-02-02 10:20] LABS: Urine Blood 2+ (NEG); Urine Glucose NEGATIVE (NEG); Urine Protein TRACE (NEG); Urine pH 6.5 (5.0-7.0)
== END 2019-02-02 09:19 | disposition home or self-care (01) ==
LOC: ER 08:25
DX: R30.0 Dysuria (principal); I10 Essential (primary) hypertension; Z79.82 Long term (current) use of aspirin; Z88.0 Allergy status to penicillin
CPT/HCPCS: 81003; 81015; 87086; 87088; 99283

== ENCOUNTER 2020-07-21 16:05 | Emergency (ER) | payer OTHER ==
--- OUTSIDE RECORDS SUMMARY | 2020-07-21 16:08 | XMS REPORT | Continuity of Care Document ---
:[address] [facility] t Address [address] [place] [address] Care Team Providers Name Role Phone Asked, Pcp Primary Care Physician Unavailable ANURAG Attending Clinician Unavailable GABBY Attending Clinician Unavailable ANGEL Attending Clinician Unavailable ANURAG Admitting Clinician Unavailable Problems Condition Condition Condition Status Onset Resolution Last Treating Co mments Source Name Details Category Date Date Treatment Clinician Date Prostate Prostate Disease Active [place] cancer cancer 08-29 [facility] 00:00: st 00 Osteoarthr Osteoarthr Problem Active [facility] itis of itis of HL7.CCDAR2 [place] [facility] [place] Left knee Problem Active Uni vers pain pain HL7.CCDAR2 [facility] [place] [facility] Seborrheic Seborrheic Problem Active U nivers keratoses keratoses HL7.CCDAR2 [facility] [place] [facility] Allergies, Adverse Reactions, Alerts Allergy Allergy Status Severity Reaction(s) Onset Inactive Treating Comm ents Source Name Type Date Date Clinician Penicill Propensi Active Other (See Does not [place] ins ty to Comments) 08-29 know rx Method i adverse 00:00: st reaction 00 s to drug Penicill drug Active [facility] ins allergy [facility] [place] [facility] Social History Social Habit Start Date Stop Date Quantity Comments [facility] Alcohol Binge Tobacco use and 2019-01-18 2019-01-18 Never used Bharath Rosales ethodist exposure 00:00:00 00:00:00 Alcohol intake 2019-01-18 2019-01-18 Lifetime Bharath Me thodist 00:00:00 00:00:00 non-drinker (finding) History SDOH 2018-08-29 2018-08-29 1 [place] [facility] odist Alcohol Frequency 00:00:00 00:00:00 Sex [birth year] At [birth year] Bharath Rosales ethodist 00:00:00 00:00:00 Smoking Status Start Date Stop Date Source Never smoker Bharath [facility] t Medications Ordered Filled Start Stop Current Ordering Indication Dosage Frequency Signature Comments Components Source Medication Medication Date Date Medication? Clinician (SIG) Name Name losartan 2018-03 Yes losartan [place] (COZAAR) 25 - 25 mg [facility] MG tablet 13:11: tablet aspirin 81 2018-03 Yes aspirin [place] mg chewable 03-20 [facility] tablet 13:11: st famotidine 2018-03 Yes 40mg QD Take 40 mg [place] (PEPCID) 40 13 by mouth Meth jenny MG tablet 13:11: daily. OrthoVisc OrthoVisc Yes JOSH ORTIZ inj 2 ml Univers 30 MG/2ML 30 MG/2ML 1-23 M.D. to l knee ity of Intra-artic Intra-artic 00:00: qweek x 3 [place] ular ular 00 weeks Physici Solution Solution ans Prefilled Prefilled Syringe Syringe Mobic TABS Mobic TABS Yes [facility] [place] [facility] Aspirin Aspirin Yes Univers TABS TABS [facility] [place] [facility] Procedures This patient has no known procedures. Plan of Care Planned Activity Planned Date Details Comments Source Future Scheduled 2020-10-06 INFLUENZA VACCINE [place] [facility] 00:00:00 [code = INFLUENZA VACCINE] Future Scheduled 2011 COLONOSCOPY SCREENING [place] [facility] 00:00:00 [code = COLONOSCOPY SCREENING] Future Scheduled 2011 SHINGLES VACCINES [place] [facility] 00:00:00 (#1) [code = SHINGLES VACCINES (#1)] Future Scheduled 1979 Hepatitis C screening [place] [facility] 00:00:00 (procedure) [code = 762565043] Future Scheduled 1977 COVID-19 VACCINE (1) Rhettrehan zamora [facility] 00:00:00 [code = COVID-19 VACCINE (1)] Encounters Start End Encounter Admission Attending Care Care Encounter Source Date/Time Date/Time Type Type Clinicians Facility Department ID 2019-06-06 2019-06-06 Outpatient MILES, [facility] [id number] [place] 00:00:00 00:00:[address] [facility] [address] 2019-01-30 2019-01-30 Outpatient [facility], [facility] [id number] [place] 00:00:00 00:00:[address] OLGA [address] 2019-01-24 2019-01-24 Outpatient MILES, [facility] [id number] [place] 00:00:00 00:00:00 OLGA [address] 2019-01-16 2019-01-18 Outpatient [facility], [facility] 125 [id number] [place] 00:00:00 00:00:00 OLGA [address] 2017-08-13 2017-08-13 Appointmen TONYA PIERRE Dermatology [id number] Univers 13:45:00 13:45:00 t; KYMBERLY PIERRE M.D. ity of Emir TRAYLOR M.D. Physici ans 2017-04-29 2017-04-29 Appointmen TONYA ORTIZ [facility] [id number] Univers 10:15:00 10:15:00 t; JOSH ORTIZ M.D. i ty of [place] M[place] [facility] 2017-04-22 2017-04-22 Appointmen TONYA ORTIZ [facility] [id number] Univers 10:15:00 10:15:00 t; JOSH ORTIZ M.D. i ty of [place] [facility] 2017-04-15 2017-04-15 Appointmen TONYA ORTIZ [facility] [id number] Univers 10:15:00 10:15:00 t; JOSH ORTIZ M.D. i ty of [place] [facility] 2017-03-30 2017-03-30 Appointmen TONYA ORTIZ [facility] [id number] Univers 14:15:00 14:15:00 t; JOSH ORTIZ M.D. [facility] ty [place] [facility]ici ans Results Test Description Test Time Test Comments Results Result Comments Source Tobacco Use Screening 2017-08-13 13:45:00 Test Item Value Reference Range Interpretation Comme nts Completed (test code = Completed) DONE [facility][U] XRAY KNEE 4 OR MORE VWS LEFT [id number] 14:04:00Images acquired, not reported on this accession number.[facility]
[2020-07-21 20:54] LABS: Absolute Lymphocytes (CBC) 1.4 K/uL (0.7-4.9); Basophils % 0.3 % (0-1.3); Hematocrit 48.2 % (39.6-49.0); Lymphocytes % 18.6 % (15.3-44.8); MPV 9.8 fL (7.6-11.3); RBC Red Blood Cell Count 5.65 M/uL (4.33-5.43)
[2020-07-21 21:08] LABS: ALT/SGPT 62 U/L (12-78); AST/SGOT 31 U/L (15-37); Alkaline Phosphatase 112 U/L (45-117); BUN Blood Urea Nitrogen 12 mg/dL (7-18); Bicarbonate 27 mmol/L (21-32); Bilirubin Direct 0.2 mg/dL (0-0.2); Bilirubin Total 0.8 mg/dL (0.2-1.0); Glucose Level 97 mg/dL (74-106); Lipase 83 U/L (73-393); Potassium 3.9 mmol/L (3.5-5.1); Protein, Total 7.6 g/dL (6.4-8.2); Sodium Level 139 mmol/L (136-145)
[2020-07-21] MEDS ORDERED: MORPHINE 4 MG/ML SYR ONE (21:11)
[2020-07-21] MEDS ORDERED: ONDANSETRON 4 MG/2 ML VIAL ONE (21:12)
[2020-07-21] MEDS ORDERED: NA CHLORIDE 0.9% 1,000 ML ONE (21:12)
[2020-07-21 21:41] LABS: Urine Blood Negative (Negative); Urine Glucose Negative (Negative); Urine Protein Negative (Negative); Urine pH 6.5 (5.0-7.0)
--- NOTE | 2020-07-21 22:54 | EDPHYS ---
Physician Documentation [facility] Name: Rei Euceda Jr Age: 60 yrs Sex: Male : 1960 Arrival Date: 07/21/2020 Time: 16:07 Bed 7 Private MD: ED Physician Michael Riley HPI: 07/21 21:05 This 60 yrs old Male presents to ER via Ambulatory with complaints of pm1 Abdominal Pain, Nausea. 21:05 The patient presents with abdominal pain in the upper abdomen. Onset: The pm1 symptoms/episode began/occurred 2 week(s) ago. The symptoms do not radiate. Associated signs and symptoms: Pertinent positives: constipation, diarrhea, nausea, Pertinent negatives: chest pain, shortness of breath, vomiting. The symptoms are described as achy, burning. Modifying factors: The symptoms are alleviated by laxatives but they might have caused his current diarrhea. the symptoms are aggravated by nothing. Severity of pain: in the emergency department the pain has improved. The patient has not experienced similar symptoms in the past. The patient has not recently seen a physician. Historical: - Allergies: 16:31 PENICILLINS; ca1 - PMHx: 16:31 allergies; Arthritis; Colitis; Hypertension; Ulcers; ca1 - PSHx: 16:31 shoulder sx; knee replacement; prostatectomy; ca1 - Immunization history:: Client reports receiving the 2nd dose of the Covid vaccine, Client reports receiving the 1st dose of the Covid vaccine, Flu vaccine is up to date. - Social history:: Smoking status: Patient denies any tobacco usage or history of. ROS: 21:05 Constitutional: Negative for fever, chills, and weight loss, Eyes: Negative for injury, pm1 pain, redness, and discharge, ENT: Negative for injury, pain, and discharge, Neck: Negative for injury, pain, and swelling, Cardiovascular: Negative for chest pain, palpitations, and edema, Respiratory: Negative for shortness of breath, cough, wheezing, and pleuritic chest pain. 21:05 Back: Negative for injury and pain, MS/Extremity: Negative for injury and deformity, Skin: Negative for injury, rash, and discoloration, Neuro: Negative for headache, weakness, numbness, tingling, and seizure. 21:05 Abdomen/GI: Positive for abdominal pain, nausea, diarrhea, constipation, Negative for vomiting. Exam: 21:05 Constitutional: This is a well developed, well nourished patient who is awake, alert, pm1 and in no acute distress. Head/Face: Normocephalic, atraumatic. Chest/axilla: Normal chest wall appearance and motion. Nontender with no deformity. No lesions are appreciated. Cardiovascular: Regular rate and rhythm with a normal S1 and S2. No gallops, murmurs, or rubs. Normal PMI, no JVD. No pulse deficits. Respiratory: Lungs have equal breath sounds bilaterally, clear to auscultation and percussion. No rales, rhonchi or wheezes noted. No increased work of breathing, no retractions or nasal flaring. Abdomen/GI: Soft, non-tender, with normal bowel sounds. No distension or tympany. No guarding or rebound. No evidence of tenderness throughout. Back: No spinal tenderness. No costovertebral tenderness. Full range of motion. Skin: Warm, dry with normal turgor. Normal color with no rashes, no lesions, and no evidence of cellulitis. MS/ Extremity: Pulses equal, no cyanosis. Neurovascular intact. Full, normal range of motion. 21:05 Neuro: Exam negative for acute changes, Orientation: is normal, Mentation: is normal, Motor: is normal, moves all fours, Gait: is steady, at a normal pace, without difficulty. Vital Signs: 16:28 BP 131 / 83; Pulse 73; Resp 16 S; Temp 97.6(TE); Pulse Ox 100% on R/A; Weight 95.25 kg ca1 (R); Height 5 ft. 8 in. (172.72 cm) (R); Pain 5/10; 16:28 Body Mass Index 31.93 (95.25 kg, 172.72 cm) ca1 MDM: 20:26 Patient medically screened. pm1 22:53 Data reviewed: vital signs. Data interpreted: Pulse oximetry: on room air is 100 %. pm1 Interpretation: normal. 22:53 Counseling: I had a detailed discussion with the patient and/or guardian regarding: the pm1 historical points, exam findings, and any diagnostic results supporting the discharge/admit diagnosis, lab results, radiology results, the need for outpatient follow up, a podiatrist assistant, to return to the emergency department if symptoms worsen or persist or if there are any questions or concerns that arise at home. 07/21 20:25 Order name: Basic Metabolic Panel; Complete Time: 21:31 ea 07/21 20:25 Order name: CBC with Diff; Complete Time: 21:31 ea 07/21 20:25 Order name: Hepatic Function; Complete Time: 21:31 ea 07/21 20:25 Order name: Lipase; Complete Time: 21:31 ea 07/21 20:31 Order name: CT Abd/Pelvis - IV Contrast Only pm1 07/21 21:40 Order name: Urine Dipstick-Ancillary; Complete Time: 22:12 EDMS 07/21 20:25 Order name: IV Saline Lock; Complete Time: 20:37 ea 07/21 20:25 Order name: Labs collected and sent; Complete Time: 20:37 ea 07/21 20:31 Order name: Urine Dipstick-Ancillary (obtain specimen); Complete Time: 21:40 pm1 Administered Medications: 20:58 Drug: Zofran (Ondansetron) 4 mg Route: IVP; Site: right antecubital; ea 23:08 Follow up: Response: No adverse reaction ea 21:00 Drug: morphine 4 mg Route: IVP; Site: right antecubital; ea 23:08 Follow up: Response: No adverse reaction 21:01 Drug: NS 0.9% 1000 ml Route: IV; Rate: 1000 ml; Site: right antecubital; ea 23:08 Follow up: Response: No adverse reaction; IV Status: Completed infusion; IV Intake: ea 1000ml 23:08 Drug: Cipro (ciprofloxacin) 500 mg Route: PO; ea 07/22 00:05 Follow up: Response: No adverse reaction 07/21 23:08 Drug: Flagyl (metroNIDAZOLE) 500 mg Volume: 100 ml; Route: IVPB; Rate: 200 ml/hr; ea Infused Over: 30 mins; Site: right antecubital; 07/22 00:05 Follow up: Response: No adverse reaction; IV Status: Completed infusion ea Disposition: 06:12 Co-signature as Attending Physician, Michael Riley MD. pkl Disposition: 07/21/20 22:54 Discharged to Home. Impression: Colitis. - Condition is Stable. - Discharge Instructions: Colitis. - Prescriptions for Zofran ODT 4 mg Oral tablet,disintegrating - place 1 tablet by TRANSLINGUAL route every 8 hours As needed; 12 tablet. Bentyl 20 mg Oral Tablet - take 1 tablet by ORAL route every 6 hours As needed; 20 tablet. Cipro 500 mg Oral Tablet - take 1 tablet by ORAL route every 12 hours for 10 days; 20 tablet. Flagyl 500 mg Oral Tablet - take 1 tablet by ORAL route every 8 hours for 10 days; 30 tablet. - Medication Reconciliation Form, Thank You Letter, Antibiotic Education, Prescription Opioid Use form. - Follow up: Emergency Department; When: As needed; Reason: Worsening of condition. Follow up: Private Physician; When: 2 - 3 days; Reason: Recheck today's complaints, Continuance of care, Re-evaluation by your physician. - Problem is new. - Symptoms have improved. Signatures: Dispatcher [employer] EDMS Michael Riley MD MD pkl Oni Rae, TURBINATED BONE GRINDER TURBINATED BONE GRINDER pm1 Katy Cuevas RN RN ea Acob, Cheryl RN BELINDA ca1 Corrections: (The following items were deleted from the chart) 00:06 07/21 22:54 07/21/2020 22:54 Discharged to Home. Impression: Colitis. Condition is ea Stable. Forms are Medication Reconciliation Form, Thank You Letter, Antibiotic Education, Prescription Opioid Use. Follow up: Emergency Department; When: As needed; Reason: Worsening of condition. Follow up: Private Physician; When: 2 - 3 days; Reason: Recheck today's complaints, Continuance of care, Re-evaluation by your physician. Problem is new. Symptoms have improved. pm1
--- NOTE | 2020-07-21 22:54 | ER ---
Nurse's Notes [facility] Name: Rei Euceda Jr Age: 60 yrs Sex: Male : 1960 Arrival Date: 07/21/2020 Time: 16:07 Bed 7 Private MD: Diagnosis: Colitis Presentation: 07/21 16:28 Chief complaint: Patient states: Been having abdominal issues for 1 - 2 weeks now, ca1 burning sensation on the upper abdominal area with a little nausea and constipation. Been taking stool softeners with relief. Been taking Dulcolax x 3 days, and now been getting more of a diarrhea. Coronavirus screen: Client denies travel out of the [place] in the last 14 days. diarrhea, nausea, Client presents with at least one sign or symptom that may indicate coronavirus-19. Standard/surgical mask placed on the client. Provider contacted for isolation considerations. Ebola Screen: Patient negative for fever greater than or equal to 101.5 degrees Fahrenheit, and additional compatible Ebola Virus Disease symptoms Patient denies exposure to infectious person. Patient denies travel to an Ebola-affected area in the 21 days before illness onset. No symptoms or risks identified at this time. Initial Sepsis Screen: Does the patient meet any 2 criteria? No. Patient's initial sepsis screen is negative. Does the patient have a suspected source of infection? No. Patient's initial sepsis screen is negative. Risk Assessment: Do you want to hurt yourself or someone else? Patient reports no desire to harm self or others. Onset of symptoms was July 21, 2020. 16:28 Method Of Arrival: Ambulatory ca1 16:28 Acuity: DVAID 3 ca1 Historical: - Allergies: 16:31 PENICILLINS; ca1 - PMHx: 16:31 allergies; Arthritis; Colitis; Hypertension; Ulcers; ca1 - PSHx: 16:31 shoulder sx; knee replacement; prostatectomy; ca1 - Immunization history:: Client reports receiving the 2nd dose of the Covid vaccine, Client reports receiving the 1st dose of the Covid vaccine, Flu vaccine is up to date. - Social history:: Smoking status: Patient denies any tobacco usage or history of. Screenin:25 Abuse screen: Denies threats or abuse. Nutritional screening: No deficits noted. ea Tuberculosis screening: No symptoms or risk factors identified. Fall Risk None identified. Assessment: 20:37 General: Appears in no apparent distress. Behavior is calm, cooperative, appropriate ea for age. Pain: Denies pain. Pain: Complains of pain in abdomen. Neuro: Level of Consciousness is awake, alert, obeys commands, Oriented to person, place, time. Cardiovascular: Patient's skin is warm and dry. Respiratory: Airway is patent Respiratory effort is even, unlabored, Respiratory pattern is regular, symmetrical. GI: Abdomen is non-distended. Derm: Skin is pink, warm \T\ dry. 21:39 Reassessment: Patient and/or family updated on plan of care and expected duration. Pain ea level reassessed. Patient is alert, oriented x 3, equal unlabored respirations, skin warm/dry/pink. Vital Signs: 16:28 BP 131 / 83; Pulse 73; Resp 16 S; Temp 97.6(TE); Pulse Ox 100% on R/A; Weight 95.25 kg ca1 (R); Height 5 ft. 8 in. (172.72 cm) (R); Pain 5/10; 16:28 Body Mass Index 31.93 (95.25 kg, 172.72 cm) ca1 ED Course: 16:07 Patient arrived in ED. as 16:30 Triage completed. ca1 16:31 Arm band placed on right wrist. ca1 20:24 Ktay Cuevas RN is Primary Nurse. ea 20:25 Oni Rae NP is PHCP. pm1 20:25 Michael Riley MD is Attending Physician. pm1 20:30 Patient has correct armband on for positive identification. Placed in gown. Bed in low ea position. Call light in reach. 20:37 Inserted saline lock: 20 gauge in right antecubital area, using aseptic technique. ea Blood collected. 21:50 CT Abd/Pelvis - IV Contrast Only In Process Unspecified. EDMS 07/22 00:05 No provider procedures requiring assistance completed. IV discontinued, intact, ea bleeding controlled, No redness/swelling at site. Pressure dressing applied. Administered Medications: 07/21 20:58 Drug: Zofran (Ondansetron) 4 mg Route: IVP; Site: right antecubital; ea 23:08 Follow up: Response: No adverse reaction ea 21:00 Drug: morphine 4 mg Route: IVP; Site: right antecubital; ea 23:08 Follow up: Response: No adverse reaction ea 21:01 Drug: NS 0.9% 1000 ml Route: IV; Rate: 1000 ml; Site: right antecubital; ea 23:08 Follow up: Response: No adverse reaction; IV Status: Completed infusion; IV Intake: ea 1000ml 23:08 Drug: Cipro (ciprofloxacin) 500 mg Route: PO; ea 07/22 00:05 Follow up: Response: No adverse reaction ea 07/21 23:08 Drug: Flagyl (metroNIDAZOLE) 500 mg Volume: 100 ml; Route: IVPB; Rate: 200 ml/hr; ea Infused Over: 30 mins; Site: right antecubital; 07/22 00:05 Follow up: Response: No adverse reaction; IV Status: Completed infusion ea Intake: 07/21 23:08 IV: 1000ml; Total: 1000ml. ea Outcome: 22:54 Discharge ordered by . pm1 07/22 00:06 Discharged to home ambulatory, with family. ea Condition: stable Discharge instructions given to patient, Instructed on discharge instructions, follow up and referral plans. medication usage, Demonstrated understanding of instructions, follow-up care, medications, Prescriptions given X 4. 00:06 Patient left the ED. ea Signatures: Dispatcher [employer] Idalmis Novoa Patrick, AUTOMATION CONTROLS SPECIALIST AUTOMATION CONTROLS SPECIALIST pm1 Katy Cuevas RN RN ea Acob, Cheryl, RN RN ca1
[2020-07-21] MEDS ORDERED: METRONIDAZOLE 500mg IVPB 500 MG/100 ML BAG IV ONE (23:21)
[2020-07-21] MEDS ORDERED: CIPROFLOXACIN HCL 500 MG TAB ONE (23:21)
[2020-07-22 00:37] VITALS: BP 131/83; TEMP 97.6; O2SAT 100
--- NOTE | 2020-07-22 12:39 | RAD REPORT ---
EXAM DESCRIPTION: CT - Abdomen Pelvis W Contrast - 07/22/2020 6:25 am CLINICAL HISTORY: ABD PAIN COMPARISON: None Available. TECHNIQUE: CT of the abdomen and pelvis performed following IV administration of iodinated contras t. This exam was performed according to our departmental dose-optimization program, which includes au tomated exposure control, adjustment of the mA and/or kV according to patient size and/or use of iter ative reconstruction technique. FINDINGS: Lung Bases: The visualized lung bases are clear. Bones: Multilevel endplate spondylosis and facet arthropathy. Abdomen: Liver: Hepatomegaly and decreased density of the liver. Gallbladder: No calcified gallstones. Spleen, Pancreas, and Adrenal Glands: The spleen, pancreas, and adrenal glands are unremarkable. Kidneys: Distention of the bilateral renal collecting systems with normal caliber ureters and no ob structing calculus. Vasculature: Aortoiliac atherosclerosis. IVC is normal caliber. The portal vein is patent. The prox imal visceral and renal arteries are patent. Stomach: The stomach and duodenum have normal course. Other: No free intraperitoneal air. No free fluid or lymphadenopathy. Tiny fat-containing umbilic al hernia. Pelvis: Bladder: Urinary bladder is unremarkable. Bowel: No dilated loops of large or small bowel. Mild wall thickening with under distention of the transverse, descending, and sigmoid colon. Appendix: Not identified. Pelvis: Prostate is not enlarged. IMPRESSION: 1. Mild wall thickening with under distention of the transverse, descending, and sigmo id colon. Findings may represent mild nonspecific colitis. 2. Distention of the bilateral renal collecting systems with normal caliber ureters and no obstruct ing calculus. Findings may be related to chronic UPJ stenosis bilaterally or the patient may have pro minent bilateral renal pelves peripelvic cyst however this is indeterminate due to lack of comparison imaging and excretory phase imaging. 3. Hepatomegaly and hepatic steatosis. Electronically signed by: Hector Chow 07/21/2020 10:25 PM CDT Due to temporary technical issues with the PACS/Fluency reporting system, reports are being signed by the in house radiologist without review as a courtesy to ensure prompt reporting. The interpreting r adiologist is fully responsible for the content of the report.
== END 2020-07-22 00:06 | disposition home or self-care (01) ==
LOC: ER 16:05
DX: K52.9 Noninfective gastroenteritis and colitis, unspecified (principal); I10 Essential (primary) hypertension; M19.90 Unspecified osteoarthritis, unspecified site; Z96.659 Presence of unspecified artificial knee joint
CPT/HCPCS: 96365; 96361; 85025; 80048; 36415; 80076; 81003; 83690; 74177; 96375; 99284; Q9967; J7030; J2405

== ENCOUNTER 2021-03-07 18:55 | Emergency (ER) | payer OTHER ==
--- OUTSIDE RECORDS SUMMARY | 2021-03-07 18:58 | XMS REPORT | Continuity of Care Document ---
:1960 Author Organization [facility] t Address [address] [place] [address] Care Team Providers Name Role Phone ANURAG Attending Clinician Unavailable GABBY Attending Clinician Unavailable ANGEL Attending Clinician Unavailable ANURAG Admitting Clinician Unavailable Problems Condition Condition Condition Status Onset Resolution Last Treating Co mments Source Name Details Category Date Date Treatment Clinician Date Osteoarthr Osteoarthr Problem Active [facility] nivers itis of itis of HL7.CCDAR2 [place] [facility] Left knee Left knee Problem Active Uni vers pain pain HL7.CCDAR2 [facility] [place] [facility] Seborrheic Seborrheic Problem Active U nivers keratoses keratoses HL7.CCDAR2 [facility] [place] [facility] Allergies, Adverse Reactions, Alerts Allergy Allergy Status Severity Reaction(s) Onset Inactive Treating Comm ents Source Name Type Date Date Clinician Penicill drug Active [facility] ins allergy [facility] [place] [facility] Social History Smoking Status Start Date Stop Date Source Never smoker [facility] Physicians Medications Ordered Filled Start Stop Current Ordering Indication Dosage Frequency Signature Comments Components Source Medication Medication Date Date Medication? Clinician (SIG) Name Name OrthoVisc OrthoVisc Yes JOSH ORTIZ inj 2 ml Univers 30 MG/2ML 30 MG/2ML 1-23 M.D. to l knee ity of Intra-artic Intra-artic 00:00: qweek x 3 [place] ular ular 00 weeks Physici Solution Solution ans Prefilled Prefilled Syringe Syringe Mobic TABS Mobic TABS Yes Uni vers [facility] [place] [facility] Aspirin Aspirin Yes Univers TABS TABS it[facility] [place] [facility] Procedures This patient has no known procedures. Encounters Start End Encounter Admission Attending Care Care Encounter Source Date/Time Date/Time Type Type Clinicians Facility Department ID 2019-06-06 2019-06-06 Outpatient [facility] [id number] [place] 00:00:00 00:00:[address] [place] [address] 2019-01-30 2019-01-30 Outpatient [facility], [facility] [id number] [place] 00:00:00 00:00:00 [place] [address] 2019-01-24 2019-01-24 Outpatient [facility], [facility] [id number] [place] 00:00:00 00:00:00 [place] [address] 2019-01-16 2019-01-18 Outpatient [place], [place] [id number] [place] 00:00:00 00:00:00 [facility] [address] 2017-08-13 2017-08-13 Appointmen TONYA PIERRE [facility] [id number] Univers 13:45:00 13:45:00 t; KYMBERLY PIERRE M.D. ity of Emir T[place] M.D. Physici ans 2017-04-29 2017-04-29 Appointmen TONYA ORTIZ [facility] [id number] Univers 10:15:00 10:15:00 t; JOSH ORTIZ M.D. i ty of [place] [facility] 2017-04-22 2017-04-22 Appointmen TONYA ORTIZ [facility] [id number] Univers 10:15:00 10:15:00 t; JOSH ORTIZ M.D. i ty of [place] [facility] 2017-04-15 2017-04-15 Appointmen TONYA ORTIZ [facility] [id number] Univers 10:15:00 10:15:00 t; JOSH ORTIZ M.D. i ty of [place] [facility] 2017-03-30 2017-03-30 Appointmen TONYA ORTIZ [facility] [id number] Univers 14:15:00 14:15:00 t; JOSH ORTIZ M.D. [facility] [place] ty [place] [facility] Physici ans Results Test Description Test Time Test Comments Results Result Comments Source Tobacco Use Screening 2017-08-13 13:45:00 Test Item Value Reference Range Interpretation Comme nts Completed (test code = Completed) DONE [facility][U] XRAY KNEE 4 OR MORE VWS LEFT [id number] 14:04:00Images acquired, not reported on this accession number.[facility]
--- NOTE | 2021-03-07 20:19 | ER ---
Nurse's Notes [facility] Name: Rei Euced[facility] Jr Age: 61 yrs Sex: Male : 1960 Arrival Date: 03/07/2021 Time: 18:58 Bed Waiting Private MD: Diagnosis: ED Course: 03/07 18:58 Patient arrived in ED. mr 20:18 Patient's name was called from ER lobby. No response. Unable to locate patient. Will bb disposition as left without being seen by a provider. Administered Medications: No medications were administered Outcome: 20:18 Patient left the ED. bb Signatures: Joann Shetty Brenda, RN RN bb
== END 2021-03-07 20:18 | disposition left against medical advice (07) ==
LOC: ER 18:55
DX: Z02.89 Encounter for other administrative examinations (principal)

== ENCOUNTER 2022-08-31 21:33 | Emergency (ER) | payer OTHER ==
--- OUTSIDE RECORDS SUMMARY | 2022-08-31 21:36 | XMS REPORT | Continuity of Care Document ---
:1960 Author Organization [facility] t Address [address] [place] [address] Care Team Providers Name Role Phone Asked, No Pcp Primary Care Physician Unavailable OLGA OSBORN Attending Clinician Unavailable KYMBERLY PIERRE M.D. Attending Clinician Unavailable JOSH ORTIZ M.D. 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 08-29 st 00:00: Hospita 00 l Osteoarthr Osteoarthr Problem Active [facility] T itis of itis of HL7.CCDAR2 Phys ici left knee left knee ans Left knee Left knee Problem Active [facility] pain pain HL7.CCDAR2 Physic i ans Seborrheic Seborrheic Problem Active U T keratoses keratoses HL7.CCDAR2 Physici ans Allergies, Adverse Reactions, Alerts Allergy Allergy Status Severity Reaction(s) Onset Inactive Treating Comm ents Source Name Type Date Date Clinician Penicill Propensi Active Other (See Does not Methodi ins ty to Comments) 08-[address] adverse 00:00: Hospita reaction 00 l s to drug Penicill drug Active [facility] ins allergy Physici ans Family History Family Member Diagnosis Comments Start Date Stop Date Source Natural father [facility] Natural mother [facility] Social History Social Habit Start Date Stop Date Quantity Comments Source Gender identity [facility] Sexual orientation [facility] History of Social 2020-01-19 2020-01-[address] function 00:00:00 00:00:00 Hospital Alcohol intake 2019-01-18 2019-01-18 [facility] 00:00:00 00:00:00 non-drinker Hospital (finding) Tobacco use and 2018-08-29 2018-08-29 Smokeless [facility] exposure 00:00:00 00:00:00 tobacco non-user Hospital Sex Assigned At [birth year] [facility] 00:00:00 00:00:00 Hospital Smoking Status Start Date Stop Date Source Never smoker [facility] Medications Ordered Filled Start Stop Current Ordering Indication Dosage Frequency Signature Comments Components Source Medication Medication Date Date Medication? Clinician (SIG) Name Name losartan 2018-03 Yes losartan Metho di (COZAAR) 25 1-[address] MG tablet 13:11: tablet Hospit a 03 l aspirin 81 2018-03 Yes aspirin Meth jenny mg chewable -13 st tablet 13:11: Hospita 03 l famotidine 2018-03 Yes 40mg QD Take 40 mg M ethodi (PEPCID) 40 -[address] MG tablet 13:11: daily. Hospit a 03 l OrthoVisc OrthoVisc Yes JOSH ORTIZ inj 2 ml UT 30 MG/2ML 30 MG/2ML 1-23 M.D. to l knee Physici Intra-artic Intra-artic 00:00: qweek x 3 ans ular ular 00 weeks Solution Solution Prefilled Prefilled Syringe Syringe Mobic TABS Mobic TABS Yes [facility] ans Aspirin Aspirin Yes UT TABS TABS Physici ans Procedures This patient has no known procedures. Plan of Care Planned Activity Planned Date Details Comments Source Future Scheduled 2022-08-27 Screening for [facility] Test 09:43:05 malignant neoplasm of colon (procedure) [code = 481102910] Future Scheduled 2022-08-27 Screening for [facility] Test 09:43:05 malignant neoplasm of colon (procedure) [code = 745875201] Future Scheduled 2022-08-27 [facility]ening for [facility] Test 09:43:05 malignant neoplasm of colon (procedure) [code = 549314304] Future Scheduled 2022-08-27 [facility] (#1) [code = COVID-19 VACCINE (#1)] Future Scheduled 2022-08-27 Screening for [facility] Test 09:43:05 malignant neoplasm of colon (procedure) [code = 665321902] Future Scheduled 2022-08-27 [facility]ening for [facility] Test 09:43:05 malignant neoplasm of colon (procedure) [code = 608739317] Future Scheduled 2022-08-27 SHINGLES VACCINES Method [facility] Test 09:43:05 (1 of 2) [code = SHINGLES VACCINES (1 of 2)] Future Scheduled 2022-08-27 INFLUENZA VACCINE Method [facility] Test 09:43:05 [code = INFLUENZA VACCINE] Encounters Start End Encounter Admission Attending Care Care Encounter Source Date/Time Date/Time Type Type Clinicians Facility Department ID 2019-06-06 2019-06-06 Outpatient ANURAG, [facility] [id number] [place] 00:00:00 00:00:00 OLGA [address] 2019-01-30 2019-01-30 Outpatient ANURAG, [facility] [id number] [place] 00:00:00 00:00:00 OLGA [address] 2019-01-24 2019-01-24 Outpatient [place], [facility] [id number] [place] 00:00:00 00:00:00 OLGA [address] 2019-01-16 2019-01-18 Outpatient [place], [facility] [id number] [place] 00:00:00 00:00:00 OLGA [address] 2017-08-13 2017-08-13 Appointmen TONYA PIERRE Dermatology [id number] [place] 13:45:00 13:45:00 t; KYMBERLY PIERRE M.D. Physici MEGAN, ans M.D. 2017-04-29 2017-04-29 Appointmen ANGEL [facility] [id number] [place] 10:15:00 10:15:00 t; JOSH ORTIZ M.D. P hysici PAUL, M.D. ans 2017-04-22 2017-04-22 AppointTONYA Mock [facility] [id number] [place] 10:15:00 10:15:00 t; JOSH ORTIZ M.D. P hysici PAUL, M.D. ans 2017-04-15 2017-04-15 AppointTONYA Mock [facility] [id number] [place] 10:15:00 10:15:00 t; JOSH ORTIZ M.D. P hysici PAUL, M.D. ans 2017-03-30 2017-03-30 Appointmen TONYA ORTIZ [facility] [id number] [place] 14:15:00 14:15:00 t; JOSH ORTIZ M.D. [facility] jp MORENO M.D. [facility] A Results Test Description Test Time Test Comments Results Result Comments Source Tobacco Use Screening 2017-08-13 13:45:00 Test Item Value Reference Range Interpretation Comme nts Completed (test code = Completed) DONE [facility][U] XRAY KNEE 4 OR MORE VWS LEFT [id number] 14:04:00Images acquired, not reported on this accession number.[facility]
[2022-08-31] MEDS ORDERED: NA CHLORIDE 0.9% 500 ML ONE (23:31)
[2022-08-31 23:54] LABS: Renal Epithelial <5 /HPF (None Seen); Urine Bacteria None Seen /HPF (<20); Urine Bilirubin NEGATIVE (Negative); Urine Blood Negative (Negative); Urine Clarity Clear (Clear); Urine Color Light-Yellow (Yellow); Urine Glucose NEGATIVE (Negative); Urine Mucus Slight /HPF (None Seen); Urine Protein NEGATIVE (Negative); Urine RBC <5 /HPF (None Seen); Urine Urobilinogen Normal (Normal); Urine pH 6.5 (5.0-7.0)
[2022-08-31 23:57] LABS: Absolute Lymphocytes (CBC) 1.4 K/uL (0.7-4.9)
[2022-09-01 00:02] LABS: MCV 84.7 fL (80-100); MPV 8.7 fL (7.6-11.3); RBC Red Blood Cell Count 5.44 M/uL (4.33-5.43)
[2022-09-01 00:06] LABS: Albumin 3.6 g/dL (3.4-5.0); Bilirubin Total 0.5 mg/dL (0.2-1.0); Potassium 3.8 mEq/L (3.5-5.1); Protein, Total 6.9 g/dL (6.4-8.2)
--- NOTE | 2022-09-01 02:21 | ER ---
Nurse's Notes [facility] Name: Rei Euceda Jr Age: 62 yrs Sex: Male : 1960 Arrival Date: 08/31/2022 Time: 21:33 Bed 14 Private MD: Diagnosis: Constipation, unspecified;Lower abdominal pain, unspecified Presentation: 08/31 22:54 Chief complaint: Patient states: I think I am constipated and it is causing me a bad ha1 abdominal pain. 22:54 Coronavirus screen: Vaccine status: Patient reports receiving the 2nd dose of the covid ha1 vaccine. Moderna. Ebola Screen: No symptoms or risks identified at this time. Initial Sepsis Screen: Does the patient meet any 2 criteria? No. Patient's initial sepsis screen is negative. Does the patient have a suspected source of infection? No. Patient's initial sepsis screen is negative. Risk Assessment: Do you want to hurt yourself or someone else? Patient reports no desire to harm self or others. Onset of symptoms was August 31, 2022. 22:54 Method Of Arrival: Ambulatory ha1 22:54 Acuity: DAVID 3 ha1 Triage Assessment: 22:54 General: Appears comfortable, Behavior is calm, cooperative. Pain: Complains of pain in ha1 abdomen Pain does not radiate. Pain currently is 7 out of 10 on a pain scale. Neuro: Level of Consciousness is awake, alert, obeys commands, Oriented to person, place, time, situation. Cardiovascular: Patient's skin is warm and dry. Respiratory: Airway is patent Respiratory effort is even, unlabored, Respiratory pattern is regular, symmetrical. GI: Reports lower abdominal pain, constipation. Musculoskeletal: Circulation, motion, and sensation intact. Range of motion: intact in all extremities. Historical: - Allergies: 23:20 PENICILLINS; ha1 - Home Meds: 23:20 aspirin 81 mg Oral TbEC 1 tab once daily [Active]; losartan Oral [Active]; ha1 - PMHx: 23:20 Colitis; Hypertension; Ulcers; ha1 - Immunization history:: Adult Immunizations up to date. - Social history:: Smoking status: Patient denies any tobacco usage or history of. Screenin:25 Abuse screen: Denies threats or abuse. Denies injuries from another. Nutritional ha1 screening: No deficits noted. Tuberculosis screening: No symptoms or risk factors identified. 09/01 00:00 [facility] ED Fall Risk Assessment (Adult) History of falling in the last 3 months, rv including since admission No falls in past 3 months (0 pts) Confusion or Disorientation No (0 pts) Intoxicated or Sedated No (0 pts) Impaired Gait No (0 pts) Mobility Assist Device Used No (0 pt) Altered Elimination No (0 pt) Score/Fall Risk Level 0 - 2 = Low Risk Oriented to surroundings, Maintained a safe environment, Educated pt \T\ family on fall prevention, incl call for assistance when getting out of bed, Assessed \T\ reinforced patient's understanding of fall precautions, Provided non-skid footwear, Hourly rounding (assess needs \T\ fall precautionary measures) done, Used ambulatory aids as needed (educated on \T\ assisted with), Used gait belt as appropriate. Assessment: 02:34 Reassessment: Patient and/or family updated on plan of care and expected duration. Pain ha1 level reassessed. Patient is alert, oriented x 3, equal unlabored respirations, skin warm/dry/pink. Patient states symptoms have improved. Vital Signs: 08/31 22:54 BP 136 / 93; Pulse 79; Resp 16 S; Temp 98.6; Pulse Ox 98% on R/A; Weight 94.8 kg (M); ha1 Height 5 ft. 8 in. ; 09/01 02:34 BP 119 / 82; Pulse 82; Resp 18; Temp 98; Pulse Ox 100% on R/A; rv 08/31 22:54 Body Mass Index 31.78 (94.80 kg, 172.72 cm) ha1 [place] Coma Score: 02:34 Eye Response: spontaneous(4). Motor Response: obeys commands(6). Verbal Response: rv oriented(5). Total: 15. ED Course: 08/31 21:36 Patient arrived in ED. ja2 22:34 Timothy Zuleta PA is PHCP. cp 22:34 Timothy Joel MD is Attending Physician. cp 22:56 Jh Garcia RN is Primary Nurse. rv 23:20 Triage completed. ha1 23:28 CBC with Diff Sent. rv 23:28 CMP Sent. rv 23:28 Lipase Sent. rv 23:28 Inserted saline lock: 20 gauge in right antecubital area, using aseptic technique. rv Blood collected. 09/01 00:00 Patient has correct armband on for positive identification. rv 00:00 Arm band placed on. rv 01:36 CT Abd/Pelvis - IV Contrast Only In Process Unspecified. EDMS 02:35 No provider procedures requiring assistance completed. IV discontinued, intact, rv bleeding controlled, No redness/swelling at site. Pressure dressing applied. Administered Medications: 08/31 23:28 Drug: NS 0.9% IV 1000 ml Route: IV; Rate: 500 bolus; Site: right antecubital; rv 09/01 02:36 Follow up: IV Status: Completed infusion rv Medication: 02:35 VIS not applicable for this client. rv Outcome: 02:21 Discharge ordered by MD. cp 02:35 Discharged to home ambulatory. rv 02:35 Condition: improved 02:35 Discharge instructions given to patient, Instructed on discharge instructions, follow up and referral plans. medication usage, Demonstrated understanding of instructions, follow-up care, medications, Prescriptions given X 1. 02:36 Patient left the ED. rv Signatures: Dispatcher [employer] EDMS Timothy Zuleta PA PA cp Vicente, Ronaldo, RN RN rv Rizwana Montague Heidy RN RN ha1 Corrections: (The following items were deleted from the chart) 08/31 23:24 23:20 PMHx: allergies; ha1 ha1
--- NOTE | 2022-09-01 02:21 | EDPHYS ---
Physician Documentation [facility] Name: Rei Euceda Jr Age: 62 yrs Sex: Male : 1960 Arrival Date: 08/31/2022 Time: 21:33 Bed 14 Private MD: ED Physician Timothy Joel HPI: 08/31 23:10 This 62 yrs old Male presents to ER via Ambulatory with complaints of Abdominal cp Problem, Pain and Constipation. 23:10 The patient presents with abdominal pain. Onset: The symptoms/episode began/occurred cp gradually, and became worse today. Associated signs and symptoms: Pertinent positives: constipation, Pertinent negatives: anorexia, blood in stools, chest pain, diarrhea, dysuria, fever, testicular pain. The symptoms are described as intermittent. 23:10 Has tried OTC stool softeners w/o relief. cp Historical: - Allergies: 23:20 PENICILLINS; ha1 - Home Meds: 23:20 aspirin 81 mg Oral TbEC 1 tab once daily [Active]; losartan Oral [Active]; ha1 - PMHx: 23:20 Colitis; Hypertension; Ulcers; ha1 - Immunization history:: Adult Immunizations up to date. - Social history:: Smoking status: Patient denies any tobacco usage or history of. ROS: 23:15 Constitutional: Negative for body aches, chills, fever, poor PO intake. cp 23:15 Eyes: Negative for injury, pain, redness, and discharge. cp 23:15 Cardiovascular: Negative for chest pain, edema, palpitations. cp 23:15 ENT: Negative for drainage from ear(s), ear pain, sore throat, difficulty swallowing, cp difficulty handling secretions. 23:15 Respiratory: Negative for cough, shortness of breath, wheezing. 23:15 Abdomen/GI: Positive for abdominal pain, constipation, Negative for vomiting, diarrhea, black/tarry stool, rectal bleeding. 23:15 Back: Negative for pain at rest, pain with movement. 23:15 : Negative for hematuria, burning with urination, testicular pain 23:15 All other systems are negative. Exam: 23:20 Constitutional: The patient appears in no acute distress, alert, awake, comfortable, cp non-diaphoretic, non-toxic, well developed, well nourished. 23:20 Head/Face: Normocephalic, atraumatic. cp 23:20 Eyes: Periorbital structures: appear normal, Conjunctiva: normal, no exudate, no injection, Sclera: no appreciated abnormality, Lids and lashes: appear normal, bilaterally. 23:20 ENT: External ear(s): are unremarkable, Ear canal(s): are normal, TM's: are normal, no evidence of bulging, no erythema, Nose: is normal, Mouth: Lips: moist. 23:20 Chest/axilla: Inspection: normal, Palpation: is normal, no crepitus, no tenderness. 23:20 Cardiovascular: Rate: normal, Rhythm: regular. 23:20 Respiratory: the patient does not display signs of respiratory distress, Respirations: cp normal, no use of accessory muscles, no retractions, labored breathing, is not present, Breath sounds: are clear throughout, no decreased breath sounds, no stridor, no wheezing. 23:20 Abdomen/GI: Inspection: abdomen appears normal, Bowel sounds: active, all quadrants, cp Palpation: soft, in all quadrants, mild abdominal tenderness, in the left lower quadrant, rebound tenderness, is not appreciated, involuntary guarding, is not appreciated. 23:20 Back: pain, is absent, ROM is normal. 23:20 Neuro: Orientation: to person, place \T\ time. Mentation: is normal, Motor: moves all fours, strength is normal. Vital Signs: 22:54 BP 136 / 93; Pulse 79; Resp 16 S; Temp 98.6; Pulse Ox 98% on R/A; Weight 94.8 kg (M); ha1 Height 5 ft. 8 in. ; 09/01 02:34 BP 119 / 82; Pulse 82; Resp 18; Temp 98; Pulse Ox 100% on R/A; rv 08/31 22:54 Body Mass Index 31.78 (94.80 kg, 172.72 cm) ha1 [place] Coma Score: 02:34 Eye Response: spontaneous(4). Motor Response: obeys commands(6). Verbal Response: rv oriented(5). Total: 15. MDM: 08/31 22:56 Patient medically screened. [facility] 09/01 02:20 Data reviewed: vital signs, nurses notes, lab test result(s), radiologic studies, CT cp scan. 02:20 Differential diagnosis: bowel obstruction, non-specific abd pain, Prostatitis, urinary cp tract infection. 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 Special discussion: Based on the patient's Hx, exam, and Dx evaluation, there is no indication for emergent surgery or inpatient Tx. It is understood by the patient/guardian that if the Sx's persist or worsen they need to return immediately for re-evaluation. 08/31 23:05 Order name: CBC with Diff; Complete Time: 01:48 cp 09/01 01:48 Interpretation: Normal except: RBC 5.44. cp 08/31 23:05 Order name: CMP; Complete Time: 01:48 cp 09/01 01:48 Interpretation: Normal except: GLUC 115; GFR 82; ALK 121; CA 8.4. cp 08/31 23:05 Order name: Lipase; Complete Time: 01:48 cp 08/31 23:05 Order name: Urinalysis W/Microscopic; Complete Time: 01:48 cp 08/31 23:05 Order name: CT Abd/Pelvis - IV Contrast Only cp 08/31 23:05 Order name: IV Saline Lock; Complete Time: 23:28 cp 08/31 23:05 Order name: Labs collected and sent; Complete Time: 23:28 cp Administered Medications: 08/31 23:28 Drug: NS 0.9% IV 1000 ml Route: IV; Rate: 500 bolus; Site: right antecubital; rv 09/01 02:36 Follow up: IV Status: Completed infusion rv Disposition Summary: 09/01/22 02:21 Discharge Ordered Location: Home cp Problem: new cp Symptoms: have improved cp Condition: Stable cp Diagnosis - Constipation, unspecified cp - Lower abdominal pain, unspecified cp Followup: cp - With: Private Physician - When: 1 week - Reason: symptoms continue Discharge Instructions: - Discharge Summary Sheet cp - Abdominal Pain, Adult cp - Constipation, Adult cp Forms: - Medication Reconciliation Form cp - Thank You Letter cp - Antibiotic Education cp - Prescription Opioid Use cp - [email or web address] cp - Work release form ha1 Prescriptions: - Golytely 236-22.74-6.74 -5.86 gram Oral Recon Soln - take 240 milliliter by ORAL route every 10 minutes As needed for bowel cp movement; 4000 milliliter; Refills: 0, Product Selection Permitted Signatures: Dispatcher [employer] EDMS Timothy Joel MD MD cha Page, Corey, AVNI HLOLY cp Jh Garcia RN RN Florence Santa RN RN ha1 Corrections: (The following items were deleted from the chart) 08/31 23:24 23:20 PMHx: allergies; ha1 ha1 23:05 Bladder Scanner ordered. cp rv 09/02 01:38 08/31 23:10 This 62 yrs old Male presents to ER via Ambulatory with complaints of cp Urinary Problem. cp
[2022-09-01 03:01] VITALS: BP 119/82; TEMP 98; O2SAT 100
--- NOTE | 2022-09-01 21:44 | RAD REPORT ---
EXAM DESCRIPTION: CT Abdomen and Pelvis With Intravenous Contrast CLINICAL HISTORY: The patient is 62 years old and is Male; lower abdomen pain, constipation TECHNIQUE: Axial computed tomography images of the abdomen and pelvis with intravenous contrast. S agittal and coronal reformatted images were created and reviewed. This CT exam was performed using one or more of the following dose reduction techniques: automated exposure control, adjustment of t he mA and/or kV according to patient size, and/or use of iterative reconstruction technique. COMPARISON: July 21, 2020. FINDINGS: Lung bases: Unremarkable. No mass. No consolidation. ABDOMEN: Liver: Unremarkable. No mass. Gallbladder and bile ducts: Unremarkable. No calcified stones. No ductal dilation. Pancreas: Unremarkable. No mass. No ductal dilation. Spleen: Unremarkable. No splenomegaly. Adrenals: Unremarkable. No mass. Kidneys and ureters: Dilated right renal pelvis and calyces, similar to prior. No obstructing sto meli identified. Left renal pelviectasis, similar to prior. No obstructing stone identified. Stomach and bowel: Unremarkable. No obstruction. No mucosal thickening. PELVIS: Appendix: The appendix is normal. Bladder: Unremarkable. Reproductive: Unremarkable as visualized. ABDOMEN and PELVIS: Intraperitoneal space: Unremarkable. No free air. No significant fluid collection. Bones/joints: Disc space narrowing with degenerative endplate changes in the spine. No acute fracture. No dislocation. Soft tissues: Unremarkable. Vasculature: Unremarkable. No abdominal aortic aneurysm. Lymph nodes: Unremarkable. No enlarged lymph nodes. IMPRESSION: No acute finding in the abdomen/pelvis. Electronically signed by: Paul Castaneda MD 09/01/2022 1:54 AM CDT Due to temporary technical issues with the PACS/Fluency reporting system, reports are being signed by the in house radiologists without review as a courtesy to insure prompt reporting. The interpreting radiologist is fully responsible for the content of the report.
== END 2022-09-01 02:36 | disposition home or self-care (01) ==
LOC: ER 21:33
DX: K59.00 Constipation, unspecified (principal); I10 Essential (primary) hypertension; Z88.0 Allergy status to penicillin; Z79.82 Long term (current) use of aspirin
CPT/HCPCS: 85025; 81001; 36415; 83690; 80053; 74177; Q9967; J7040